=== PATIENT | female | born 1985 | race American Indian/Alaskan Native ===

== ENCOUNTER 2016-05-24 06:04 | Emergency (ER) | payer BC ==
[2016-05-24] MEDS ORDERED: D5NS 0.2% 1,000 ML IV ONE (06:34)
[2016-05-24] MEDS ORDERED: MORPHINE IV ONE (10:43)
[2016-05-24 10:50] LABS: Basophils % (Auto) 0.8 % (0.0-1.8); Eosinophils % (Auto) 0.7 % (0.0-4.3); Hematocrit 31.2 % (30.3-42.9); Hemoglobin 9.4 gm/dl (10.1-14.3); Mean Corpuscular HGB Conc 30 % (30-34); Mean Corpuscular Volume 76 fl (79-97); Platelet Count 294 K/mm3 (140-440); Red Blood Count 4.09 M/mm3 (3.65-5.03); White Blood Count 4.5 K/mm3 (4.5-11.0)
--- NOTE | 2016-05-24 10:52 | Emergency Department Report ---
HPI - General Chief Complaint: Sickle Cell Crisis Time Seen by Provider: 05/24/16 09:36 - HPI HPI: This is a 30-year-old Afro[place] female who presents to the emergency department with a 2 day history of "pain all over" that she believes is due to her sickle cell crisis. Patient has been dealing with intermittent sickle cell pain and was seen by her primary care doctor/balance wheel facer on Friday and required a transfusion at that time. She denies any fever, shortness of breath , nausea, vomiting. Patient is on hydroxyurea and folic acid acid but says she has been out of her oxycodone pain medication. No recent travel or sick contacts at home. She has a port to the left chest wall. She also has a past medical history of asthma. ED Past Medical Hx - Past Medical History Previous Medical History?: Yes Hx Sickle Cell Disease: Yes Hx Asthma: Yes Additional medical history: Blood transfusion - Surgical History Past Surgical History?: Yes Additional Surgical History: port to left chest wall - Social History Smoking Status: Never Smoker Substance Use Type: None - Medications Home Medications: Home Medications Medication Instructions Recorded Confirmed Last Taken Type Folic Acid 0.4 mg PO QDAY 05/24/16 05/24/16 Unknown History Hydroxyurea [Hydrea] 500 mg PO BID 05/24/16 05/24/16 Unknown History Ondansetron [Zofran Odt] 4 mg PO Q6H 05/24/16 05/24/16 Unknown History Oxycodone HCl/Acetaminophen 1 each PO Q6HR PRN #14 tablet 05/24/16 Unknown Rx [Percocet 10/325 mg] ED Review of Systems ROS: Stated complaint: SICKLE CELL PAIN Other details as noted in HPI Comment: All other systems reviewed and negative Constitutional: denies: chills, fever Eyes: denies: eye pain, eye discharge, vision change ENT: denies: ear pain, throat pain Respiratory: denies: cough, shortness of breath, wheezing Cardiovascular: chest pain. denies: palpitations Gastrointestinal: denies: abdominal pain, nausea, diarrhea Genitourinary: denies: urgency, dysuria, discharge Musculoskeletal: back pain, arthralgia, myalgia Skin: denies: rash, lesions Neurological: denies: headache, weakness, paresthesias Physical Exam - Physical Exam Vital Signs: Vital Signs 0205/24/16 05/24/16 06:26 09:35 09:41 Temperature 98.3 F 98.4 F Pulse Rate 99 H Respiratory 16 18 Rate Blood Pressure 116/71 114/77 O2 Sat by Pulse 100 100 Oximetry Physical Exam: GENERAL: The patient is well-developed well-nourished. HEENT: Normocephalic. Atraumatic. Extraocular motions are intact. Patient has moist mucous membranes. Pupils equal reactive to light bilaterally. NECK: Supple. Trachea is midline. CHEST/LUNGS: Clear to auscultation. There is no respiratory distress noted. HEART/CARDIOVASCULAR: Regular. There is no tachycardia. There is no gallop rub or murmur. ABDOMEN: Abdomen is soft, nontender. Patient has normal bowel sounds. There is no abdominal distention. SKIN: There is no rash. There is no edema. There is no diaphoresis. NEURO: The patient is awake, alert, and oriented. The patient is cooperative. The patient has no focal neurologic deficits. The patient has normal speech. Cranial nerves II 12 grossly intact. MUSCULOSKELETAL: There is no tenderness or deformity. There is no limitation range of motion. There is no evidence of acute injury. Muscle strength 5 out of 5 for upper and lower extremities bilaterally. Cap refill less than 2 seconds. ED Course Vital Signs 05/24/16 05/24/16 05/24/16 06:26 09:35 09:41 Temperature 98.3 F 98.4 F Pulse Rate 99 H Respiratory 16 18 Rate Blood Pressure 116/71 114/77 O2 Sat by Pulse 100 100 Oximetry ED Medical Decision Making - Lab Data Result diagrams: 05/24/16 10:00 05/24/16 10:52 - EKG Data -: EKG Interpreted by Me EKG shows normal: sinus rhythm, axis, intervals, QRS complexes, ST-T waves ( isolated T-wave inversion to lead V2) Rate: normal - EKG Data When compared to previous EKG there are: previous EKG unavailable Interpretation: other (isolated T-wave inversions in lead V2, no ST elevation MO ) - Radiology Data Radiology results: image reviewed interpreted by me: Chest x-ray did not show any acute process. Heart is normal shape and size. No effusions. No pneumothorax. No signs of pneumonia seen. - Medical Decision Making 30-year-old female with sickle cell disease presents with what she describes as pain all over. Since that pain did include the chest, the patient was checked with a EKG and chest x-ray. EKG shows a single isolated T-wave inversion in lead V2 but otherwise no ST elevation MO or dysrhythmia. Chest x-ray does not show any acute process including no signs of infiltrates or any pleural effusions. Patient's labs are unremarkable including being afebrile. For these reasons the patient does not appear to be in any acute chest crisis. The rest the patient's labs are mostly unremarkable as well. She does have some anemia but the hemoglobin is 9.2 and does not require transfusion as there does not appear to be symptomatic anemia. Patient's reticulocyte count is 2. She has normal metabolic panel and a negative troponin. Patient does not complain of any significant abdominal pain, vaginal bleeding or dysuria and therefore no urine was obtained but the patient also denies any chance of . She was given IV fluid resuscitation, pain medication and a dose of Zofran. Upon reevaluation she appears much more comfortable and does not appear in any acute distress. She has good follow up with a balance wheel facer. She'll be discharged home to follow-up with them in the next few days but has been encouraged to return to the ER with any worsening of her symptoms, intractable vomiting, intractable fever or any acute distress. - Differential Diagnosis sickle cell pain crisis, chest crisis, fibromyalgia, muscle strain Critical Care Time: No Critical care attestation.: If time is entered above; I have spent that time in minutes in the direct care of this critically ill patient, excluding procedure time. ED Disposition Clinical Impression: Sickle cell pain crisis, Musculoskeletal pain Anemia Qualifiers: Anemia type: unspecified type Qualified Code(s): D64.9 - Anemia, unspecified Disposition: DISCHARGED TO HOME OR SELFCARE Is pt being admited?: No Does the pt Need Aspirin: No Condition: Stable Instructions: Sickle Cell Crisis (ED) Additional Instructions: Please follow-up with your primary care doctor/balance wheel facer in the next few days. Return to the emergency department with any worsening of your symptoms, intractable fever, intractable vomiting, or any acute process. You've been prescribed a medication that is sedating. Therefore this medication cannot be mixed with alcohol, or taken prior to driving, working, or being responsible for children. Prescriptions: Oxycodone HCl/Acetaminophen [Percocet 10/325 mg] 1 each PO Q6HR PRN #14 tablet PRN Reason: Pain Referrals: PRIMARY CARE, [Primary Care Provider] - 3-5 Days Time of Disposition: 13:29
[2016-05-24 10:57] LABS: Mean Corpuscular Hemoglobin 23 pg (28-32); Red Cell Distribution Width 21.4 % (13.2-15.2)
[2016-05-24 10:58] LABS: Reticulocyte % 2.04 % (0.78-2.58)
--- NOTE | 2016-05-24 11:26 | XRay Report ---
Single view chest: History: Chest pain. Findings: Normal cardiomediastinal silhouette. Trachea is midline. No consolidation, pneumothorax or pleural effusion. Stable Port-A-Cath. Impression: No acute cardiopulmonary findings.
[2016-05-24] MEDS ORDERED: TORADOL IV ONE (11:33)
[2016-05-24] MEDS ORDERED: BENADRYL IV ONE (11:33)
[2016-05-24] MEDS ORDERED: ZOFRAN IV ONE (11:33)
[2016-05-24] MEDS ORDERED: DILAUDID IV ONE ×2 (11:33→13:12)
[2016-05-24 12:40] LABS: Blood Urea Nitrogen 4 mg/dL (7-17); Calcium 8.7 mg/dL (8.4-10.2); Carbon Dioxide 23 mmol/L (22-30); Chloride 101.9 mmol/L (98-107); Glucose 107 mg/dL (65-100); Potassium 4.1 mmol/L (3.6-5.0); Sodium 137 mmol/L (137-145)
[2016-05-24 12:42] LABS: Anion Gap 16 mmol/L
[2016-05-24 12:51] VITALS: BP 105/63
[2016-05-24] MEDS ORDERED: FLUSH HEPARIN IV ONE (13:52)
== END 2016-05-24 14:04 | disposition home or self-care (01) ==
LOC: ED 06:04
DX: D57.00 Hb-SS disease with crisis, unspecified (principal); M79.1 Myalgia; J45.909 Unspecified asthma, uncomplicated
CPT/HCPCS: 36415; 71010; 80048; 84484; 85025; 85045; 93005; 93010; 96361; 96374; 96375; 96376; 99284; J1170; J1200; J1642; J1885; J2270; J2405

== ENCOUNTER 2016-05-28 20:59 | Emergency (ER) | payer BC ==
[2016-05-28 21:38] VITALS: BP 130/81
--- NOTE | 2016-05-28 23:56 | Emergency Department Report ---
HPI - General Chief Complaint: Sickle Cell Crisis Time Seen by Provider: 05/28/16 23:43 - HPI HPI: Dharmesh Mayorga The patient is a 30-year-old female presenting with a chief complaint sickle cell pain crisis. The patient states she is visiting from [facility] for approximately 1 week she has had whole-body pain. The patient states the pain had began her chest that then became diffuse and feels consistent with her sickle cell pain crisis. The patient was seen here in the emergency department : Once over symptoms was treated and released. The patient states the pain returned and she called her line appliance assembler daylin (Dr. Walter) and he advised her to come to the ED. The patient states she has an appointment to see her line appliance assembler 05/30/2016 Location: "Whole body" Duration: 1 week Quality: Sickle cell pain Severity: Moderate Modifying factors: [see above] Context: [see above] Mode of transportation: [not driving] ED Past Medical Hx - Past Medical History Previous Medical History?: Yes Hx Sickle Cell Disease: Yes Hx Asthma: Yes Additional medical history: Blood transfusion - Surgical History Past Surgical History?: Yes Additional Surgical History: port to left chest wall - Family History Family history: no significant - Social History Smoking Status: Never Smoker Substance Use Type: None - Medications Home Medications: Home Medications Medication Instructions Recorded Confirmed Last Taken Type Folic Acid 0.4 mg PO QDAY 05/24/16 05/24/16 Unknown History Hydroxyurea [Hydrea] 500 mg PO BID 05/24/16 05/24/16 Unknown History Ondansetron [Zofran Odt] 4 mg PO Q6H 05/24/16 05/24/16 Unknown History Oxycodone HCl/Acetaminophen 1 each PO Q6HR PRN #14 tablet 05/24/16 Unknown Rx [Percocet 10/325 mg] oxyCODONE /ACETAMINOPHEN [Percocet 1 - 2 tab PO Q6HR PRN #14 tablet 05/29/16 Unknown Rx 5/325] ED Review of Systems ROS: Stated complaint: SICKLE CELL PAIN Other details as noted in HPI Comment: All other systems reviewed and negative Constitutional: denies: chills, fever Eyes: denies: eye pain, eye discharge, vision change ENT: denies: ear pain, throat pain Respiratory: denies: cough, shortness of breath, wheezing Cardiovascular: denies: palpitations Endocrine: no symptoms reported Gastrointestinal: denies: abdominal pain, nausea, diarrhea Genitourinary: denies: urgency, dysuria, discharge Musculoskeletal: myalgia Skin: denies: rash, lesions Neurological: denies: headache, weakness, paresthesias Psychiatric: denies: anxiety, depression Hematological/Lymphatic: denies: easy bleeding, easy bruising Physical Exam - Physical Exam Vital Signs: Vital Signs 05/28/16 21:34 Temperature 99.1 F Pulse Rate 96 H Respiratory 16 Rate Blood Pressure 130/81 O2 Sat by Pulse 100 Oximetry Physical Exam: GENERAL: The patient is well-developed well-nourished female lying on stretcher appearing to be in mild discomfort. [] HEENT: Normocephalic. Atraumatic. Extraocular motions are intact. Patient has moist mucous membranes. NECK: Supple. Trachea midline CHEST/LUNGS: Clear to auscultation. There is no respiratory distress noted. HEART/CARDIOVASCULAR: Regular. There is no tachycardia. There is no gallop rub or murmur. ABDOMEN: Abdomen is soft. Patient has normal bowel sounds. There is no abdominal distention. SKIN: There is no rash. There is no edema. There is no diaphoresis. NEURO: The patient is awake, alert, and oriented. The patient is cooperative. The patient has normal speech MUSCULOSKELETAL: There is no evidence of acute injury. ED Course Vital Signs 05/28/16 21:34 Temperature 99.1 F Pulse Rate 96 H Respiratory 16 Rate Blood Pressure 130/81 O2 Sat by Pulse 100 Oximetry - Consultations Consultation #1: 05/29/16 00:52 Patient's [address] assembler [address] William buckley ([phone])- discussed case with on-call line appliance assembler Dr. Moore. She states that the patient was last seen by Dr. Martínez in September 2015 and his records do reflect the patient has sickle cell anemia 05/29/16 01:18 ED Medical Decision Making - Lab Data Result diagrams: 05/28/16 23:47 Laboratory Tests 05/28/16 05/28/16 23:47 23:47 WBC 5.5 RBC 3.49 L Hgb 8.2 L Hct 26.7 L MCV 77 L MCH 24 L MCHC 31 RDW 21.7 H Plt Count 184 Lymph % (Auto) 36.9 H [place] % (Auto) 10.0 H Eos % (Auto) 0.8 Baso % (Auto) 0.7 Lymph # 2.0 [place] # 0.5 Eos # 0.0 Baso # 0.0 Seg Neutrophils % 51.6 Seg Neutrophils # 2.8 Percent Retic 1.12 Sickle Cell Screen Negative - Differential Diagnosis sickle cell pain crisis, malingering Critical care attestation.: If time is entered above; I have spent that time in minutes in the direct care of this critically ill patient, excluding procedure time. ED Disposition Clinical Impression: Anemia, Whole body pain Disposition: DISCHARGED TO HOME OR SELFCARE Is pt being admited?: No Does the pt Need Aspirin: No Condition: Stable Additional Instructions: Return to the emergency department immediately should you develop worsening symptoms, fever, inability to tolerate food or liquid or any other concerns. Prescriptions: oxyCODONE /ACETAMINOPHEN [Percocet 5/325] 1 - 2 tab PO Q6HR PRN #14 tablet PRN Reason: Pain Referrals: PRIMARY CARE, [Primary Care Provider] - 3-[address] William Martínez, your line appliance assembler [Other] - 05/30/16 Time of Disposition: 01:21
[2016-05-28] MEDS: D5NS 0.2% 1,000 ML IV ONE (23:58)
[2016-05-29] MEDS: SUBLIMAZE IV ONE
[2016-05-29] MEDS: ZOFRAN IV ONE
[2016-05-29 00:03] LABS: Hematocrit 26.7 % (30.3-42.9); Hemoglobin 8.2 gm/dl (10.1-14.3); Mean Corpuscular Hemoglobin 24 pg (28-32); Mean Corpuscular Volume 77 fl (79-97); Red Blood Count 3.49 M/mm3 (3.65-5.03); White Blood Count 5.5 K/mm3 (4.5-11.0)
[2016-05-29 00:04] LABS: Basophils % (Auto) 0.7 % (0.0-1.8); Eosinophils % (Auto) 0.8 % (0.0-4.3); Mean Corpuscular HGB Conc 31 % (30-34); Platelet Count 184 K/mm3 (140-440); Red Cell Distribution Width 21.7 % (13.2-15.2); Reticulocyte % 1.12 % (0.78-2.58)
[2016-05-29] MEDS: DILAUDID IV ONE (00:42)
[2016-05-29] MEDS: FLUSH HEPARIN IV ONE (01:52)
== END 2016-05-29 02:06 | disposition home or self-care (01) ==
LOC: ED 20:59
DX: D64.9 Anemia, unspecified (principal); M79.1 Myalgia; J45.909 Unspecified asthma, uncomplicated
CPT/HCPCS: 36415; 85025; 85045; 85660; 96361; 96374; 96375; 99283; J1170; J1642; J2405; J3010

== ENCOUNTER 2016-07-12 10:43 | Emergency (ER) | payer BC ==
[2016-07-12] MEDS ORDERED: D5NS 0.2% 1,000 ML IV SCH (12:00)
--- NOTE | 2016-07-12 12:06 | XRay Report ---
PA and lateral chest: There is an [id number] entering the left subclavian vein with the tip in the upper third of the SVC. The lungs are clear. The mediastinal contour is unremarkable. No vascular congestion. Compared to a prior frontal view on May 24, 2016 the findings are unchanged. Impression: No acute findings.
[2016-07-12] MEDS ORDERED: DILAUDID ONE (13:37)
[2016-07-12] MEDS ORDERED: ZOFRAN ONE (13:37)
[2016-07-12] MEDS ORDERED: ZOFRAN IV ONE (13:39)
[2016-07-12] MEDS ORDERED: DILAUDID IV ONE (13:39)
[2016-07-12 13:57] LABS: Basophils % (Auto) 0.9 % (0.0-1.8); Eosinophils % (Auto) 1.2 % (0.0-4.3); Hematocrit 25.3 % (30.3-42.9); Hemoglobin 8.1 gm/dl (10.1-14.3); Mean Corpuscular HGB Conc 32 % (30-34); Mean Corpuscular Hemoglobin 27 pg (28-32); Mean Corpuscular Volume 85 fl (79-97); Platelet Count 349 K/mm3 (140-440); Red Blood Count 2.98 M/mm3 (3.65-5.03); Red Cell Distribution Width 17.6 % (13.2-15.2); Reticulocyte % 1.87 % (0.78-2.58); White Blood Count 7.8 K/mm3 (4.5-11.0)
[2016-07-12 14:15] LABS: Anion Gap 14 mmol/L; Blood Urea Nitrogen 3 mg/dL (7-17); Calcium 8.7 mg/dL (8.4-10.2); Carbon Dioxide 24 mmol/L (22-30); Chloride 103.7 mmol/L (98-107); Glucose 81 mg/dL (65-100); Potassium 4.3 mmol/L (3.6-5.0); Sodium 137 mmol/L (137-145)
--- NOTE | 2016-07-12 15:25 | Emergency Department Report ---
HPI - General Chief Complaint: Sickle Cell Crisis Time Seen by Provider: 07/12/16 13:37 - HPI HPI: Room 10 Patient is a 30-year-old female presenting with a chief complaint of sickle cell pain crisis. Patient states her pain began 2 days ago with substernal chest pain of sharp in nature and then began to spread to her legs and back. Patient states it feels consistent with previous pain crises. Patient does admit to shortness of breath but denies cough. Patient admits to a fever 101.2 F 3 days ago. Location: [see above] Duration: 2 days Quality: Pain crisis consistent with previous sickle cell pain crisis Severity: Moderate Modifying factors: [see above] Context: [see above] Mode of transportation: Unknown ED Past Medical Hx - Past Medical History Previous Medical History?: Yes Hx Hypertension: Yes Hx Sickle Cell Disease: Yes (hemoglobinopathy labs sent05/28/2016 revealed normal hemoglobin) Hx Asthma: Yes Additional medical history: Blood transfusion - Surgical History Past Surgical History?: Yes Additional Surgical History: port to left chest wall - Family History Family history: no significant - Social History Smoking Status: Never Smoker Substance Use Type: Prescribed - Medications Home Medications: Home Medications Medication Instructions Recorded Confirmed Last Taken Type Folic Acid 0.4 mg PO QDAY 05/24/16 05/24/16 Unknown History Hydroxyurea [Hydrea] 500 mg PO BID 05/24/16 05/24/16 Unknown History Ondansetron [Zofran Odt] 4 mg PO Q6H 05/24/16 05/24/16 Unknown History Oxycodone HCl/Acetaminophen 1 each PO Q6HR PRN #14 tablet 05/24/16 Unknown Rx [Percocet 10/325 mg] oxyCODONE /ACETAMINOPHEN [Percocet 1 - 2 tab PO Q6HR PRN #14 tablet 05/29/16 Unknown Rx 5/325] Ibuprofen [Motrin 800 MG tab] 800 mg PO Q8HR PRN #30 tablet 07/12/16 Unknown Rx ED Review of Systems ROS: Stated complaint: SICKLE CELL CRISIS Other details as noted in HPI Comment: All other systems reviewed and negative Constitutional: fever Eyes: denies: eye pain, eye discharge, vision change ENT: denies: ear pain, throat pain Respiratory: shortness of breath. denies: cough Cardiovascular: chest pain. denies: palpitations Endocrine: no symptoms reported Gastrointestinal: denies: abdominal pain, nausea, diarrhea Genitourinary: denies: urgency, dysuria, discharge Musculoskeletal: denies: back pain, joint swelling, arthralgia Skin: denies: rash, lesions Neurological: denies: headache, weakness, paresthesias Psychiatric: denies: anxiety, depression Hematological/Lymphatic: other (sickle cell pain crisis) Physical Exam - Physical Exam Vital Signs: Vital Signs 07/12/16 07/12/16 11:37 13:50 Temperature 98.5 F 98.9 F Pulse Rate 97 H 80 Respiratory 18 18 Rate Blood Pressure 122/69 Blood Pressure 116/78 [Left] O2 Sat by Pulse 100 99 Oximetry Physical Exam: GENERAL: The patient is well-developed well-nourished female lying on stretcher not appearing to be in acute distress. [] HEENT: Normocephalic. Atraumatic. Extraocular motions are intact. Patient has moist mucous membranes. NECK: Supple. Trachea midline CHEST/LUNGS: Clear to auscultation. There is no respiratory distress noted. HEART/CARDIOVASCULAR: Regular. There is no tachycardia. There is no gallop rub or murmur. ABDOMEN: Abdomen is soft, nontender. Patient has normal bowel sounds. There is no abdominal distention. SKIN: There is no rash. There is no edema. There is no diaphoresis. NEURO: The patient is awake, alert, and oriented. The patient is cooperative. The patient has normal speech MUSCULOSKELETAL: There is no evidence of acute injury. ED Course Vital Signs 07/12/16 07/12/16 11:37 13:50 Temperature 98.5 F 98.9 F Pulse Rate 97 H 80 Respiratory 18 18 Rate Blood Pressure 122/69 Blood Pressure 116/78 [Left] O2 Sat by Pulse 100 99 Oximetry ED Medical Decision Making - Lab Data Result diagrams: 07/12/16 13:25 07/12/16 13:25 Laboratory Tests 07/12/16 07/12/16 13:25 13:25 WBC 7.8 RBC 2.98 L Hgb 8.1 L Hct 25.3 L MCV 85 MCH 27 L MCHC 32 RDW 17.6 H Plt Count 349 Lymph % (Auto) 24.9 [place] % (Auto) 7.5 H Eos % (Auto) 1.2 Baso % (Auto) 0.9 Lymph # 2.0 [place] # 0.6 Eos # 0.1 Baso # 0.1 Seg Neutrophils % 65.5 Seg Neutrophils # 5.1 Percent Retic 1.87 Sodium 137 Potassium 4.3 Chloride 103.7 Carbon Dioxide 24 Anion Gap 14 BUN 3 L Creatinine 0.5 L Estimated GFR > 60 BUN/Creatinine Ratio 6.00 Glucose 81 Calcium 8.7 - EKG Data -: EKG Interpreted by Me EKG shows normal: sinus rhythm Rate: normal - EKG Data When compared to previous EKG there are: previous EKG unavailable - Radiology Data Radiology results: report reviewed (VQ scan), image reviewed (chest x-ray, VQ scan) interpreted by me: Chest x-ray-no focal infiltrates, no pneumothorax VQ scan (read by radiologist)-normal examination Critical care attestation.: If time is entered above; I have spent that time in minutes in the direct care of this critically ill patient, excluding procedure time. ED Disposition Clinical Impression: Atypical chest pain Disposition: DISCHARGED TO HOME OR SELFCARE Is pt being admited?: No Does the pt Need Aspirin: No Condition: Stable Instructions: Chest Pain (ED) Additional Instructions: Return to the emergency department immediately should you develop worsening symptoms, fever, inability to tolerate food or liquid or any other concerns. Prescriptions: Ibuprofen [Motrin 800 MG tab] 800 mg PO Q8HR PRN #30 tablet PRN Reason: Pain Referrals: PRIMARY CARE, [Primary Care Provider] - 3-5 Days NEELA GUZMÁN DO [Staff Physician] - 3-5 Days Time of Disposition: 16:22
--- NOTE | 2016-07-12 16:19 | Nuclear Medicine Report ---
LUNG SCAN, VENTILATION AND PERFUSION: Inhalation of Xenon gas demonstrates a normal distribution of the activity throughout both lungs. The wash out phases show no focal retention of activity. After injection of Technetium 99m macroaggregated albumin gamma camera imaging of the lungs in multiple projections demonstrates normal pulmonary contours with a homogeneous distribution of activity. No focal areas of perfusion deficiency are identified. IMPRESSION: Normal study.
[2016-07-12 17:08] VITALS: BP 117/78
== END 2016-07-12 17:13 | disposition home or self-care (01) ==
LOC: ED 10:43
DX: R07.89 Other chest pain (principal); I10 Essential (primary) hypertension; J45.909 Unspecified asthma, uncomplicated
CPT/HCPCS: 36415; 71020; 78582; 80048; 85025; 85045; 87040; 93005; 93010; 96361; 96374; 96375; 99284; A9540; A9558; J1170; J2405

== ENCOUNTER 2016-07-30 00:28 | Inpatient (IN) | payer BC ==
[2016-07-30] MEDS ORDERED: D5NS 0.2% 1,000 ML IV SCH (03:00)
[2016-07-30 05:45] LABS: Basophils % (Auto) 0.6 % (0.0-1.8); Eosinophils % (Auto) 0.9 % (0.0-4.3); Hematocrit 23.3 % (30.3-42.9); Hemoglobin 7.5 gm/dl (10.1-14.3); Mean Corpuscular HGB Conc 32 % (30-34); Mean Corpuscular Hemoglobin 27 pg (28-32); Mean Corpuscular Volume 84 fl (79-97); Platelet Count 229 K/mm3 (140-440); Red Blood Count 2.77 M/mm3 (3.65-5.03); Reticulocyte % 2.78 % (0.78-2.58); White Blood Count 6.2 K/mm3 (4.5-11.0)
[2016-07-30 05:50] LABS: Alanine Aminotransferase 11 units/L (7-56); Albumin 3.7 g/dL (3.9-5); Albumin/Globulin Ratio 1.2 %; Alkaline Phosphatase 62 units/L (35-129); Anion Gap 17 mmol/L; Bilirubin,Total < 0.2 mg/dL (0.1-1.2); Blood Urea Nitrogen 5 mg/dL (7-17); Calcium 8.7 mg/dL (8.4-10.2); Carbon Dioxide 23 mmol/L (22-30); Glucose 92 mg/dL (65-100); Lipase 46 units/L (13-60); Sodium 141 mmol/L (137-145); Total Protein 6.7 g/dL (6.3-8.2)
[2016-07-30] MEDS ORDERED: ZOFRAN IV ONE (07:22)
[2016-07-30] MEDS ORDERED: DILAUDID IV ONE (07:23)
[2016-07-30] MEDS ORDERED: BENADRYL IV ONE (07:23)
--- NOTE | 2016-07-30 07:28 | Emergency Department Report ---
ED General Adult HPI - General Chief complaint: Sickle Cell Crisis Stated complaint: SICKLE CELL Time Seen by Provider: 07/30/16 06:20 Source: patient, old records reviewed Mode of arrival: Ambulatory Limitations: No Limitations - History of Present Illness Initial comments: 30-year-old female with a past medical history of sickle cell SS presents to the hospital with complaints of pain secondary to crisis. Patient was admitted to [facility] but checked herself out prematurely on the because she wanted to go home. During her admission she she states her hemoglobin was 6.3 and she received 2 units of blood. She never really felt better and continued to have pain since checking herself out of the hospital. Patient also states she walks several miles outside which exacerbated her symptoms. She now complains of generalized weakness and fatigue and pain to her back and extremities. Pain is rated 10/10 in intensity, constant, stabbing, no aggravating or alleviating factors. She states she typically receives a blood transfusion when her hemoglobin is less than 8. 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 Severity scale (0 -10): 10 - Related Data Home Medications Medication Instructions Recorded Confirmed Last Taken Folic Acid 0.4 mg PO QDAY 05/24/16 05/24/16 Unknown Hydroxyurea [Hydrea] 500 mg PO BID 05/24/16 05/24/16 Unknown Ondansetron [Zofran Odt] 4 mg PO Q6H 05/24/16 05/24/16 Unknown Previous Rx's Medication Instructions Recorded Last Taken Type Oxycodone HCl/Acetaminophen 1 each PO Q6HR PRN #14 tablet 05/24/16 Unknown Rx [Percocet 10/325 mg] oxyCODONE /ACETAMINOPHEN [Percocet 1 - 2 tab PO Q6HR PRN #14 tablet 05/29/16 Unknown Rx 5/325] Ibuprofen [Motrin 800 MG tab] 800 mg PO Q8HR PRN #30 tablet 07/12/16 Unknown Rx Allergies Allergy/AdvReac Type Severity Reaction Status Date / Time iodine Allergy Shortness Uncoded 05/24/16 06:34 of Breath ED Review of Systems ROS: Stated complaint: SICKLE CELL Other details as noted in HPI Comment: All other systems reviewed and negative Other: Constitutional: No fevers chills Eyes: No eye pain visual changes ENT: No ear pain or throat pain Neck: Denies pain Respiratory: Denies cough wheezing Cardiovascular: Denies chest pain GI: mild upper abd pain, nausea, intermittent vomiting : Denies dysuria, urinary frequency, or urgency Musculoskeletal: as per hpi Skin: Denies rash, lesions, erythema Neurologic: Denies headache, numbness, weakness Psychiatric: Denies suicidal ideation, hallucinations ED Past Medical Hx - Past Medical History Hx Hypertension: Yes Hx Sickle Cell Disease: Yes (hemoglobinopathy labs sent05/28/2016 revealed normal hemoglobin) Hx Asthma: Yes Additional medical history: Blood transfusion(multiply transfusions) - Surgical History Past Surgical History?: Yes Additional Surgical History: port to left chest wall - Social History Smoking Status: Never Smoker Substance Use Type: None - Medications Home Medications: Home Medications Medication Instructions Recorded Confirmed Last Taken Type Folic Acid 0.4 mg PO QDAY 05/24/16 05/24/16 Unknown History Hydroxyurea [Hydrea] 500 mg PO BID 05/24/16 05/24/16 Unknown History Ondansetron [Zofran Odt] 4 mg PO Q6H 05/24/16 05/24/16 Unknown History Oxycodone HCl/Acetaminophen 1 each PO Q6HR PRN #14 tablet 05/24/16 Unknown Rx [Percocet 10/325 mg] oxyCODONE /ACETAMINOPHEN [Percocet 1 - 2 tab PO Q6HR PRN #14 tablet 05/29/16 Unknown Rx 5/325] Ibuprofen [Motrin 800 MG tab] 800 mg PO Q8HR PRN #30 tablet 07/12/16 Unknown Rx ED Physical Exam - General Limitations: No Limitations - Other Other exam information: General: No limitations, patient is alert in no acute distress Head exam: Atraumatic, normocephalic Eyes exam: Normal appearance ENT: Moist mucous membrane, normal oropharynx Neck exam: Normal inspection, full range of motion Respiratory exam: Clear to auscultation bilateral, no wheezes, rales, crackles Cardiovascular: Normal rate and rhythm Abdomen: Soft, nondistended, left upper quadrant tenderness, with normal bowel sounds, no rebound, or guarding Extremity: Full range of motion normal inspection no deformity Back: Normal Inspection, full range of motion, no tenderness Neurologic: Alert, oriented x3, cranial nerves intact, no motor or sensory deficit Psychiatric: normal affect, normal mood Skin: Warm, dry, intact ED Course Vital Signs 07/30/16 07/30/16 07/30/16 01:55 05:30 06:00 Temperature 98.7 F Pulse Rate 90 80 80 Respiratory 18 18 16 Rate Blood Pressure 114/77 114/80 115/77 [Right] O2 Sat by Pulse 100 100 100 Oximetry - Reevaluation(s) Reevaluation #1: 07/30/16 07:29 Dilaudid, Zofran, Benadryl and IV fluids ordered ED Medical Decision Making - Lab Data Result diagrams: 07/30/16 02:14 07/30/16 02:14 Lab Results 07/30/16 07/30/16 Range/Units 02:14 02:14 WBC 6.2 (4.5-11.0) K/mm3 RBC 2.77 L (3.65-5.03) M/mm3 Hgb 7.5 L (10.1-14.3) gm/dl Hct 23.3 L (30.3-42.9) % MCV 84 (79-97) fl MCH 27 L (28-32) pg MCHC 32 (30-34) % RDW 20.0 H (13.2-15.2) % Plt Count 229 (140-440) K/mm3 Lymph % (Auto) 39.3 H (13.4-35.0) % [place] % (Auto) 10.0 H (0.0-7.3) % Eos % (Auto) 0.9 (0.0-4.3) % Baso % (Auto) 0.6 (0.0-1.8) % Lymph # 2.4 (1.2-5.4) K/mm3 [place] # 0.6 (0.0-0.8) K/mm3 Eos # 0.1 (0.0-0.4) K/mm3 Baso # 0.0 (0.0-0.1) K/mm3 Seg Neutrophils % 49.2 (40.0-70.0) % Seg Neutrophils # 3.1 (1.8-7.7) K/mm3 Percent Retic 2.78 H (0.78-2.58) % Sodium 141 (137-145) mmol/L Potassium 4.0 (3.6-5.0) mmol/L Chloride 105.0 (98-107) mmol/L Carbon Dioxide 23 (22-30) mmol/L Anion Gap 17 mmol/L BUN 5 L (7-17) mg/dL Creatinine 0.5 L (0.7-1.2) mg/dL Estimated GFR > 60 ml/min BUN/Creatinine Ratio 10.00 % Glucose 92 (65-100) mg/dL Calcium 8.7 (8.4-10.2) mg/dL Total Bilirubin < 0.2 (0.1-1.2) mg/dL AST 13 (5-40) units/L ALT 11 (7-56) units/L Alkaline Phosphatase 62 (35-129) units/L Total Protein 6.7 (6.3-8.2) g/dL Albumin 3.7 L (3.9-5) g/dL Albumin/Globulin Ratio 1.2 % Lipase 46 (13-60) units/L - Medical Decision Making Patient's hemoglobin has dropped back down to 7.5 after receiving 2 units of blood as she continues to have pain secondary to crisis. She was admitted to the hospital for possible blood transfusion and management of sickle cell pain. Urine collection pending - Differential Diagnosis anemia, sickle cell crisis, infection Critical Care Time: No Critical care attestation.: If time is entered above; I have spent that time in minutes in the direct care of this critically ill patient, excluding procedure time. ED Disposition Clinical Impression: Sickle-cell with crisis, Anemia Disposition: OP ADMITTED IP TO THIS HOSP Is pt being admited?: Yes Condition: Stable Time of Disposition: 07:31 (Dr Kerr/hosp)
--- NOTE | 2016-07-30 07:49 | Admit Criteria Form ---
Admission Criteria Documentation: SICKLE CELL DISEASE Clinical Indications for Admission to Inpatient Care (Place 'X' for any and all applicable criteria): Admission is indicated for ANY ONE of the following(1)(2)(3)(4)(5): [X]I. Inpatient admission required rather than observation care because of ANY ONE of the following: [ ]a) Altered mental status [ ]b) High fever or infection requiring inpatient admission as indicated by ANY ONE of the following: [ ]A. Appropriate outpatient observation care antimicrobial treatment unavailable, not effective, or not appropriate for infection [ ]B. Documented bacteremia [ ]C. Temp >104.9F (40.5C) (oral) [ ]D. Temp >103.1F (oral) or <96.8F(rectal) that does not respond to all emergency treatment measures [ ]c) Supplemental O2 or respiratory therapy for over 24 h that are performable only in acute inpatient setting [X]d) Continuous parenteral narcoticsother major pain intervention for >24 h performable only in acute inpatient setting. [ ]e) Exchange transfusion [X]f) Other condition, treatment or monitoring requiring inpatient admission [ ]II. Acute chest syndrome indicated by ALL of the following (10): [ ]a) New alveolar infiltrate involving at least one lung segment [ ]b) Associated pulmonary symptoms or findings as indicated by ANY ONE of the following: [ ]i) Chest pain [ ]ii) Hypoxemia [ ]iii) Tachypnea/dyspnea [ ]iv) Wheezing [ ]v) Cough [ ]vi) Sputum production [ ]III. Significant hypoxemia or acidosis (more severe than baseline) [ ]IV. Emergent surgery needed (eg, acute cholecystitis) [ ]V. -related complication(11) [ ]. Splenic or hepatic sequestration(12) [ ]VII. Aplastic crisis [ ]VIII. Priapism or other vascular complication(13) [ ]IX. Traumatic hyphema [A](14) [ ]X. Underlying condition requiring hospitalization (eg, osteomyelitis) [ ]XI. Signs or symptoms of central nervous system injury indicated by ANY ONE of the following: [ ]a) Stroke(9) [ ]b) Seizure [ ]c) Other significant central nervous system symptom or event [ ]XII. Acute renal failure Extended stay beyond goal length of stay may be needed for: [ ]a) Inadequate pain control [ ]b) Acute chest syndrome [ ]c) Sequestration or aplastic crisis (12) [ ]d) Pneumonia and asthma exacerbation [ ]e) Neurologic or vascular complications (25) [ ]f) Infection (eg, osteomyelitis) that requires ongoing treatment) The original [facility] content created by [facility] has been revised. The portions of the content which have been revised are identified through the use of italic text or in bold, and [facility] has neither reviewed nor approved the modified material. All other unmodified content is copyright [facility]. Please see references footnoted in the original [facility] edition 2016 Admission Criteria Met: Yes
[2016-07-30 09:04] LABS: Bacteria,Urine 1+ /HPF (Negative); Bilirubin,Urine NEG (Negative); Blood,Urine LG (Negative); Ketones,Urine NEG (Negative); Leukocyte Esterase,Urine TR (Negative); Mucus,Urine FEW /HPF; Nitrite,Urine NEG (Negative); Protein,Urine <15 mg/dL mg/dL (Negative); Urobilinogen,Urine < 2.0 mg/dL (<2.0)
--- NOTE | 2016-07-30 09:04 | History and Physical Report ---
History of Present Illness Date of examination: 07/30/16 Date of admission: 07/30/16 07:32 Chief complaint: SS pain crisis History of present illness: 30-year-old female with a past medical history of sickle cell SS presents to the hospital with complaints of sickle cell vaso-occlusive crisis with pain of the back and lower extremities. Patient was admitted to [facility] but checked herself out prematurely on the 6th because she wanted to go home. During her admission, she states her hemoglobin was 6.3 and she received 2 units of blood. She never really felt better and continued to have pain since checking herself out of the hospital. Patient also states she walks several miles outside which exacerbated her symptoms. Patient also complains of generalized weakness. Pain is rated 10/10 in intensity, constant, stabbing, no aggravating or alleviating factors. She states she typically receives a blood transfusion when her hemoglobin is less than 8. 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 Patient denies any nausea, vomiting, diarrhea or abdominal pain. No chest pain or shortness of breath. No headache or visual disturbances. Past History Past Medical History: other (asthma, lle dvt, sickle cell crisis) Past Surgical History: No surgical history Social history: no significant social history Family history: no significant family history Medications and Allergies Allergies Allergy/AdvReac Type Severity Reaction Status Date / Time iodine Allergy Shortness Uncoded 05/24/16 06:34 of Breath Home Medications Medication Instructions Recorded Confirmed Last Taken Type Hydroxyurea [Hydrea] 500 mg PO BID 05/24/16 07/30/16 Unknown History Ondansetron [Zofran Odt] 4 mg PO Q6H 05/24/16 07/30/16 Unknown History ALBUTEROL Inhaler [Proair] 2 puff IH QID PRN 07/30/16 07/30/16 Unknown History Folic Acid [Folvite] 1 mg PO QDAY 07/30/16 07/30/16 Unknown History HYDROcodone/APAP 10-325 [[place] 1 each PO Q4-6H 07/30/16 07/30/16 Unknown History 10/325] Active Meds: Active Medications Dextrose/Sodium Chloride (D5ns 0.2%) 1,000 mls @ 250 mls/hr IV DIRECT BLAINE Last Admin: 07/30/16 06:07 Dose: 250 mls/hr Review of Systems All systems: negative Exam - Constitutional Vitals: Temp Pulse Resp BP Pulse Ox 98.1 F 104 H 16 126/72 99 07/30/16 08:07 07/30/16 08:07 07/30/16 08:07 07/30/16 08:07 07/30/16 08:07 General appearance: Present: no acute distress, well-nourished - EENT Eyes: Present: PERRL ENT: hearing intact, clear oral mucosa - Neck Neck: Present: supple, normal ROM - Respiratory Respiratory effort: normal Respiratory: bilateral: CTA - Cardiovascular Heart Sounds: Present: S1 & S2. Absent: rub, click - Extremities Extremities: pulses symmetrical, No edema Peripheral Pulses: within normal limits - Abdominal General gastrointestinal: Present: soft, non-tender, non-distended, normal bowel sounds Female genitourinary: Present: normal - Integumentary Integumentary: Present: clear, warm, dry - Musculoskeletal Musculoskeletal: gait normal, strength equal bilaterally - Psychiatric Psychiatric: appropriate mood/affect, intact judgment & insight - Neurologic Neurologic: CNII-XII intact, moves all extremities Results - Labs CBC & Chem 7: 07/30/16 02:14 07/30/16 02:14 Labs: Laboratory Last Values WBC 6.2 K/mm3 (4.5-11.0) 07/30/16 02:14 RBC 2.77 M/mm3 (3.65-5.03) L 07/30/16 02:14 Hgb 7.5 gm/dl (10.1-14.3) L 07/30/16 02:14 Hct 23.3 % (30.3-42.9) L 07/30/16 02:14 MCV 84 fl (79-97) 07/30/16 02:14 MCH 27 pg (28-32) L 07/30/16 02:14 MCHC 32 % (30-34) 07/30/16 02:14 RDW 20.0 % (13.2-15.2) H 07/30/16 02:14 Plt Count 229 K/mm3 (140-440) 07/30/16 02:14 Lymph % (Auto) 39.3 % (13.4-35.0) H 07/30/16 02:14 [place] % (Auto) 10.0 % (0.0-7.3) H 07/30/16 02:14 Eos % (Auto) 0.9 % (0.0-4.3) 07/30/16 02:14 Baso % (Auto) 0.6 % (0.0-1.8) 07/30/16 02:14 Lymph # 2.4 K/mm3 (1.2-5.4) 07/30/16 02:14 [place] # 0.6 K/mm3 (0.0-0.8) 07/30/16 02:14 Eos # 0.1 K/mm3 (0.0-0.4) 07/30/16 02:14 Baso # 0.0 K/mm3 (0.0-0.1) 07/30/16 02:14 Seg Neutrophils % 49.2 % (40.0-70.0) 07/30/16 02:14 Seg Neutrophils # 3.1 K/mm3 (1.8-7.7) 07/30/16 02:14 Percent Retic 2.78 % (0.78-2.58) H 07/30/16 02:14 Sodium 141 mmol/L (137-145) 07/30/16 02:14 Potassium 4.0 mmol/L (3.6-5.0) 07/30/16 02:14 Chloride 105.0 mmol/L (98-107) 07/30/16 02:14 Carbon Dioxide 23 mmol/L (22-30) 07/30/16 02:14 Anion Gap 17 mmol/L 07/30/16 02:14 BUN 5 mg/dL (7-17) L 07/30/16 02:14 Creatinine 0.5 mg/dL (0.7-1.2) L 07/30/16 02:14 Estimated GFR > 60 ml/min 07/30/16 02:14 BUN/Creatinine Ratio 10.00 % 07/30/16 02:14 Glucose 92 mg/dL (65-100) 07/30/16 02:14 Calcium 8.7 mg/dL (8.4-10.2) 07/30/16 02:14 Total Bilirubin < 0.2 mg/dL (0.1-1.2) 07/30/16 02:14 AST 13 units/L (5-40) 07/30/16 02:14 ALT 11 units/L (7-56) 07/30/16 02:14 Alkaline Phosphatase 62 units/L (35-129) 07/30/16 02:14 Total Protein 6.7 g/dL (6.3-8.2) 07/30/16 02:14 Albumin 3.7 g/dL (3.9-5) L 07/30/16 02:14 Albumin/Globulin Ratio 1.2 % 07/30/16 02:14 Lipase 46 units/L (13-60) 07/30/16 02:14 Assessment and Plan Assessment and plan: 1. Sickle cell vaso-occlusive crisis. Patient will place on the sickle cell pathway and treated with IV fluid hydration, pain control and supportive care. 2. Asthma. Stable. 3. History of left lower extremity DVT. Treated. Patient on no anticoagulation.
[2016-07-30] MEDS ORDERED: MILK OF MAGNESIA PO PRN (09:05)
[2016-07-30] MEDS ORDERED: DULCOLAX PR PRN (09:05)
[2016-07-30] MEDS ORDERED: D5/0.45NS 1,000 ML IV SCH (10:00)
[2016-07-30] MEDS: FOLVITE PO SCH (10:13)
[2016-07-30] MEDS: MORPHINE IV PRN ×4 (10:13→23:01)
[2016-07-30] MEDS: THERAGRAN Tab PO SCH (10:13)
[2016-07-30] MEDS: LOVENOX SUB-Q SCH (10:13)
[2016-07-30] MEDS: ZOFRAN IV PRN ×2 (15:03→23:01)
[2016-07-30] MEDS: NACL 0.9% 1000 ML 1,000 ML IV SCH (17:27)
[2016-07-30] MEDS: SENOKOT PO SCH (23:01)
[2016-07-31] MEDS: MORPHINE IV PRN ×2 (03:15→07:17)
[2016-07-31] MEDS: ZOFRAN IV PRN ×2 (07:17→15:11)
[2016-07-31 07:19] LABS: Basophils % (Auto) 0.9 % (0.0-1.8); Eosinophils % (Auto) 1.8 % (0.0-4.3); Hematocrit 22.6 % (30.3-42.9); Hemoglobin 7.3 gm/dl (10.1-14.3); Mean Corpuscular HGB Conc 32 % (30-34); Mean Corpuscular Hemoglobin 27 pg (28-32); Mean Corpuscular Volume 84 fl (79-97); Platelet Count 189 K/mm3 (140-440); Red Blood Count 2.69 M/mm3 (3.65-5.03); Red Cell Distribution Width 19.5 % (13.2-15.2); Reticulocyte % 2.46 % (0.78-2.58); White Blood Count 4.9 K/mm3 (4.5-11.0)
[2016-07-31] MEDS: NACL 0.9% 1000 ML 1,000 ML IV SCH (07:19)
[2016-07-31 07:43] LABS: Anion Gap 14 mmol/L; BUN/Creatinine Ratio 6.66; Blood Urea Nitrogen 4 mg/dL (7-17); Calcium 8.6 mg/dL (8.4-10.2); Carbon Dioxide 24 mmol/L (22-30); Chloride 106.2 mmol/L (98-107); Glucose 81 mg/dL (65-100); Lactate Dehydrogenase 148 units/L (91-180); Sodium 140 mmol/L (137-145)
[2016-07-31] MEDS: THERAGRAN Tab PO SCH (09:15)
[2016-07-31] MEDS: FOLVITE PO SCH (09:15)
[2016-07-31] MEDS: LOVENOX SUB-Q SCH (09:16)
[2016-07-31] MEDS: NORCO 10/325 PO PRN (11:25)
--- NOTE | 2016-07-31 13:31 | Progress Note ---
Assessment and Plan Assessment and plan: 1. Sickle cell vaso-occlusive crisis. Continue IV hydration, pain control and supportive care UA is negative, obtain x-ray to rule out infectious etiology 2. Asthma. Stable. 3. History of left lower extremity DVT. Patient has completed treatment with anticoagulants, and is no longer on them. We'll give prophylactic Lovenox for prevention History Interval history: She continues to complain of pains all over her body, denies fever, denies dysuria, denies shortness of breath, denies cough Hospitalist Physical - Physical exam Narrative exam: General: Mild distress due to pain HEENT: MMM, EOMI cardiac: S1-S2 heard lungs: clear to auscultation, abdomen: soft, nontender, nondistended bowel sounds positive extremities: no edema clubbing or cyanosis Skin: no rash or lesion Neuro: no focal deficit Psych: appropriate behavior and mood, cognition intact - Constitutional Vitals: Temp Pulse Resp BP Pulse Ox 98.6 F 84 16 124/68 100 07/31/16 07:57 07/31/16 07:57 07/31/16 07:57 07/31/16 07:57 07/31/16 07:57 General appearance: Present: no acute distress, well-nourished Results - Labs CBC & Chem 7: 08/02/16 09:00 07/31/16 Unknown Labs: Laboratory Last Values WBC 4.9 K/mm3 (4.5-11.0) 07/31/16 Unknown RBC 2.69 M/mm3 (3.65-5.03) L 07/31/16 Unknown Hgb 7.3 gm/dl (10.1-14.3) L 07/31/16 Unknown Hct 22.6 % (30.3-42.9) L 07/31/16 Unknown MCV 84 fl (79-97) 07/31/16 Unknown MCH 27 pg (28-32) L 07/31/16 Unknown MCHC 32 % (30-34) 07/31/16 Unknown RDW 19.5 % (13.2-15.2) H 07/31/16 Unknown Plt Count 189 K/mm3 (140-440) 07/31/16 Unknown Lymph % (Auto) 51.1 % (13.4-35.0) H 07/31/16 Unknown [place] % (Auto) 9.0 % (0.0-7.3) H 07/31/16 Unknown Eos % (Auto) 1.8 % (0.0-4.3) 07/31/16 Unknown Baso % (Auto) 0.9 % (0.0-1.8) 07/31/16 Unknown Lymph # 2.5 K/mm3 (1.2-5.4) 07/31/16 Unknown [place] # 0.4 K/mm3 (0.0-0.8) 07/31/16 Unknown Eos # 0.1 K/mm3 (0.0-0.4) 07/31/16 Unknown Baso # 0.0 K/mm3 (0.0-0.1) 07/31/16 Unknown Seg Neutrophils % 37.2 % (40.0-70.0) L 07/31/16 Unknown Seg Neutrophils # 1.8 K/mm3 (1.8-7.7) 07/31/16 Unknown Percent Retic 2.46 % (0.78-2.58) 07/31/16 Unknown Sodium 140 mmol/L (137-145) 07/31/16 Unknown Potassium 4.0 mmol/L (3.6-5.0) 07/31/16 Unknown Chloride 106.2 mmol/L (98-107) 07/31/16 Unknown Carbon Dioxide 24 mmol/L (22-30) 07/31/16 Unknown Anion Gap 14 mmol/L 07/31/16 Unknown BUN 4 mg/dL (7-17) L 07/31/16 Unknown Creatinine 0.6 mg/dL (0.7-1.2) L 07/31/16 Unknown Estimated GFR > 60 ml/min 07/31/16 Unknown BUN/Creatinine Ratio 6.66 % 07/31/16 Unknown Glucose 81 mg/dL (65-100) 07/31/16 Unknown Calcium 8.6 mg/dL (8.4-10.2) 07/31/16 Unknown Total Bilirubin < 0.2 mg/dL (0.1-1.2) 07/30/16 02:14 AST 13 units/L (5-40) 07/30/16 02:14 ALT 11 units/L (7-56) 07/30/16 02:14 Alkaline Phosphatase 62 units/L (35-129) 07/30/16 02:14 Lactate Dehydrogenase 148 units/L (91-180) 07/31/16 Unknown Total Protein 6.7 g/dL (6.3-8.2) 07/30/16 02:14 Albumin 3.7 g/dL (3.9-5) L 07/30/16 02:14 Albumin/Globulin Ratio 1.2 % 07/30/16 02:14 Lipase 46 units/L (13-60) 07/30/16 02:14 Urine Color Straw (Yellow) 07/30/16 08:40 Urine Turbidity Clear (Clear) 07/30/16 08:40 Urine pH 8.0 (5.0-7.0) H 07/30/16 08:40 Ur Specific [place] 1.004 (1.003-1.030) 07/30/16 08:40 Urine Protein <15 mg/dl mg/dL (Negative) 07/30/16 08:40 Urine Glucose (UA) Neg mg/dL (Negative) 07/30/16 08:40 Urine Ketones Neg mg/dL (Negative) 07/30/16 08:40 Urine Blood Lg (Negative) 07/30/16 08:40 Urine Nitrite Neg (Negative) 07/30/16 08:40 Urine Bilirubin Neg (Negative) 07/30/16 08:40 Urine Urobilinogen < 2.0 mg/dL (<2.0) 07/30/16 08:40 Ur Leukocyte Esterase Tr (Negative) 07/30/16 08:40 Urine WBC (Auto) 1.0 /HPF (0.0-6.0) 07/30/16 08:40 Urine RBC (Auto) 4.0 /HPF (0.0-6.0) 07/30/16 08:40 U Epithel Cells (Auto) 7.0 /HPF (0-13.0) 07/30/16 08:40 Urine Bacteria (Auto) 1+ /HPF (Negative) 07/30/16 08:40 Urine Mucus Few /HPF 07/30/16 08:40 Urine HCG, Qual Negative (Negative) 07/30/16 08:40 Blood Type O POSITIVE 07/31/16 00:50 Antibody Screen Negative 07/31/16 00:50
--- NOTE | 2016-07-31 14:47 | XRay Report ---
Chest 2 views. Findings: The heart and lungs are within normal limits. A left [id number] catheter terminates in the upper SVC. Impression: No acute findings.
[2016-07-31] MEDS: BENADRYL PO PRN (15:11)
[2016-07-31] MEDS: DILAUDID IV PRN ×3 (15:11→23:33)
[2016-07-31] MEDS: SENOKOT PO SCH (22:30)
[2016-08-01] MEDS: DILAUDID IV PRN ×7 (04:33→22:08)
[2016-08-01 06:32] LABS: Basophils % (Auto) 0.9 % (0.0-1.8); Eosinophils % (Auto) 1.6 % (0.0-4.3); Hemoglobin 7.3 gm/dl (10.1-14.3); Mean Corpuscular HGB Conc 32 % (30-34); Mean Corpuscular Hemoglobin 27 pg (28-32); Mean Corpuscular Volume 83 fl (79-97); Platelet Count 188 K/mm3 (140-440); Red Blood Count 2.76 M/mm3 (3.65-5.03); Red Cell Distribution Width 19.4 % (13.2-15.2); Reticulocyte % 2.06 % (0.78-2.58); White Blood Count 5.2 K/mm3 (4.5-11.0)
[2016-08-01] MEDS: ZOFRAN IV PRN (09:15)
[2016-08-01] MEDS: LOVENOX SUB-Q SCH (09:15)
[2016-08-01] MEDS: FOLVITE PO SCH (09:15)
[2016-08-01] MEDS: THERAGRAN Tab PO SCH (09:15)
[2016-08-01] MEDS: BENADRYL PO PRN (13:51)
--- NOTE | 2016-08-01 21:37 | Progress Note ---
Assessment and Plan Assessment and plan: 1. Sickle cell vaso-occlusive crisis. Continue IV hydration, pain control and supportive care UA is negative, CXR negative, infectious workup is negative 2. Asthma. Stable. 3. History of left lower extremity DVT. Patient has completed treatment with anticoagulants, and is no longer on them. We'll give prophylactic Lovenox for prevention History Interval history: She continues to complain of pains all over her body, denies fever, denies dysuria, denies shortness of breath, denies cough Hospitalist Physical - Physical exam Narrative exam: General: Mild distress due to pain HEENT: MMM, EOMI cardiac: S1-S2 heard lungs: clear to auscultation, abdomen: soft, nontender, nondistended bowel sounds positive extremities: no edema clubbing or cyanosis Skin: no rash or lesion Neuro: no focal deficit Psych: appropriate behavior and mood, cognition intact - Constitutional Vitals: Temp Pulse Resp BP Pulse Ox 98.8 F 96 H 20 153/69 100 08/01/16 16:28 08/01/16 16:28 08/01/16 17:28 08/01/16 16:28 08/01/16 16:28 General appearance: Present: no acute distress, well-nourished Results - Labs CBC & Chem 7: 08/02/16 09:00 07/31/16 Unknown Labs: Laboratory Last Values WBC 5.2 K/mm3 (4.5-11.0) 08/01/16 05:56 RBC 2.76 M/mm3 (3.65-5.03) L 08/01/16 05:56 Hgb 7.3 gm/dl (10.1-14.3) L 08/01/16 05:56 Hct 23.0 % (30.3-42.9) L 08/01/16 05:56 MCV 83 fl (79-97) 08/01/16 05:56 MCH 27 pg (28-32) L 08/01/16 05:56 MCHC 32 % (30-34) 08/01/16 05:56 RDW 19.4 % (13.2-15.2) H 08/01/16 05:56 Plt Count 188 K/mm3 (140-440) 08/01/16 05:56 Lymph % (Auto) 34.4 % (13.4-35.0) 08/01/16 05:56 [place] % (Auto) 9.3 % (0.0-7.3) H 08/01/16 05:56 Eos % (Auto) 1.6 % (0.0-4.3) 08/01/16 05:56 Baso % (Auto) 0.9 % (0.0-1.8) 08/01/16 05:56 Lymph # 1.8 K/mm3 (1.2-5.4) 08/01/16 05:56 [place] # 0.5 K/mm3 (0.0-0.8) 08/01/16 05:56 Eos # 0.1 K/mm3 (0.0-0.4) 08/01/16 05:56 Baso # 0.0 K/mm3 (0.0-0.1) 08/01/16 05:56 Seg Neutrophils % 53.8 % (40.0-70.0) 08/01/16 05:56 Seg Neutrophils # 2.8 K/mm3 (1.8-7.7) 08/01/16 05:56 Percent Retic 2.06 % (0.78-2.58) 08/01/16 05:56 Sodium 140 mmol/L (137-145) 07/31/16 Unknown Potassium 4.0 mmol/L (3.6-5.0) 07/31/16 Unknown Chloride 106.2 mmol/L (98-107) 07/31/16 Unknown Carbon Dioxide 24 mmol/L (22-30) 07/31/16 Unknown Anion Gap 14 mmol/L 07/31/16 Unknown BUN 4 mg/dL (7-17) L 07/31/16 Unknown Creatinine 0.6 mg/dL (0.7-1.2) L 07/31/16 Unknown Estimated GFR > 60 ml/min 07/31/16 Unknown BUN/Creatinine Ratio 6.66 % 07/31/16 Unknown Glucose 81 mg/dL (65-100) 07/31/16 Unknown Calcium 8.6 mg/dL (8.4-10.2) 07/31/16 Unknown Total Bilirubin < 0.2 mg/dL (0.1-1.2) 07/30/16 02:14 AST 13 units/L (5-40) 07/30/16 02:14 ALT 11 units/L (7-56) 07/30/16 02:14 Alkaline Phosphatase 62 units/L (35-129) 07/30/16 02:14 Lactate Dehydrogenase 150 units/L (91-180) 08/01/16 05:56 Total Protein 6.7 g/dL (6.3-8.2) 07/30/16 02:14 Albumin 3.7 g/dL (3.9-5) L 07/30/16 02:14 Albumin/Globulin Ratio 1.2 % 07/30/16 02:14 Lipase 46 units/L (13-60) 07/30/16 02:14 Urine Color Straw (Yellow) 07/30/16 08:40 Urine Turbidity Clear (Clear) 07/30/16 08:40 Urine pH 8.0 (5.0-7.0) H 07/30/16 08:40 Ur Specific [place] 1.004 (1.003-1.030) 07/30/16 08:40 Urine Protein <15 mg/dl mg/dL (Negative) 07/30/16 08:40 Urine Glucose (UA) Neg mg/dL (Negative) 07/30/16 08:40 Urine Ketones Neg mg/dL (Negative) 07/30/16 08:40 Urine Blood Lg (Negative) 07/30/16 08:40 Urine Nitrite Neg (Negative) 07/30/16 08:40 Urine Bilirubin Neg (Negative) 07/30/16 08:40 Urine Urobilinogen < 2.0 mg/dL (<2.0) 07/30/16 08:40 Ur Leukocyte Esterase Tr (Negative) 07/30/16 08:40 Urine WBC (Auto) 1.0 /HPF (0.0-6.0) 07/30/16 08:40 Urine RBC (Auto) 4.0 /HPF (0.0-6.0) 07/30/16 08:40 U Epithel Cells (Auto) 7.0 /HPF (0-13.0) 07/30/16 08:40 Urine Bacteria (Auto) 1+ /HPF (Negative) 07/30/16 08:40 Urine Mucus Few /HPF 07/30/16 08:40 Urine HCG, Qual Negative (Negative) 07/30/16 08:40 Blood Type O POSITIVE 07/31/16 00:50 Antibody Screen Negative 07/31/16 00:50 - Imaging and Cardiology Chest x-ray: image reviewed (no acute findings)
[2016-08-01] MEDS: SENOKOT PO SCH (22:09)
[2016-08-01] MEDS: NACL 0.9% 1000 ML 1,000 ML IV SCH (22:09)
[2016-08-02] MEDS: DILAUDID IV PRN ×6 (01:10→16:58)
[2016-08-02] MEDS: BENADRYL PO PRN ×3 (01:13→14:05)
[2016-08-02] MEDS: ZOFRAN IV PRN ×2 (01:13→11:23)
[2016-08-02] MEDS: NORCO 10/325 PO PRN (09:05)
[2016-08-02] MEDS: THERAGRAN Tab PO SCH (09:05)
[2016-08-02] MEDS: FOLVITE PO SCH (09:05)
[2016-08-02] MEDS: LOVENOX SUB-Q SCH (09:06)
[2016-08-02 09:21] LABS: Basophils % (Auto) 0.9 % (0.0-1.8); Eosinophils % (Auto) 1.6 % (0.0-4.3); Hematocrit 24.1 % (30.3-42.9); Hemoglobin 7.6 gm/dl (10.1-14.3); Mean Corpuscular HGB Conc 32 % (30-34); Mean Corpuscular Hemoglobin 27 pg (28-32); Mean Corpuscular Volume 84 fl (79-97); Platelet Count 194 K/mm3 (140-440); Red Blood Count 2.85 M/mm3 (3.65-5.03); Red Cell Distribution Width 19.3 % (13.2-15.2); Reticulocyte % 1.82 % (0.78-2.58)
--- NOTE | 2016-08-02 09:29 | Discharge Summary ---
Providers - Providers Date of Admission: 07/30/16 07:32 Attending physician: FRANCOIS KEITA MD Primary care physician: FLOOR FINISHER Hospitalization Condition: Stable Hospital course: This is a 30-year-old woman who presented with pain due to sickle cell crisis. She was admitted to medicine she was treated with IV fluids and analgesics. Infection workup was negative, UA and chest x-rays were both done and were negative. Her hemoglobin was stable. She clinically improved and is being sent home with oral analgesics Discharge diagnoses 1. sickle cell with vaso-occlusive crisis 2. Anemia due to hemolysis 3. Asthma Disposition: DISCHARGED TO HOME OR SELFCARE Time spent for discharge: 35 minutes Core Measure Documentation - Palliative Care Palliative Care/ Comfort Measures: Not Applicable - Core Measures Any of the following diagnoses?: none Exam - Constitutional Vitals: Temp Pulse Resp BP Pulse Ox 98.7 F 59 L 18 113/78 99 08/02/16 07:30 08/02/16 07:30 08/02/16 09:05 08/02/16 07:30 08/02/16 07:30 General appearance: Present: no acute distress, well-nourished - EENT Eyes: Present: PERRL ENT: hearing intact, clear oral mucosa - Neck Neck: Present: supple, normal ROM - Respiratory Respiratory effort: normal Respiratory: bilateral: CTA - Cardiovascular Heart Sounds: Present: S1 & S2. Absent: rub, click - Extremities Extremities: pulses symmetrical, No edema Peripheral Pulses: within normal limits - Abdominal General gastrointestinal: Present: soft, non-tender, non-distended, normal bowel sounds Female genitourinary: Present: normal - Integumentary Integumentary: Present: clear, warm, dry - Musculoskeletal Musculoskeletal: gait normal, strength equal bilaterally - Psychiatric Psychiatric: appropriate mood/affect, intact judgment & insight - Neurologic Neurologic: CNII-XII intact, moves all extremities Plan Follow up with: PRIMARY CARE, [Primary Care Provider] - 3-5 Days Prescriptions: Sennosides Tab [Senokot] 17.2 mg PO QHS PRN #60 tablet PRN Reason: Constipation HYDROcodone/APAP 10-325 [[place] 10-325 mg TAB] 1 each PO Q4-6H #30 tablet Multivitamin Tab [Multiple Vitamin TAB (Theragran)] 1 each PO QDAY #30 tablet
[2016-08-02 16:21] VITALS: BP 119/66
[2016-08-02] MEDS ORDERED: FLUSH HEPARIN IV ONE (18:16)
[2016-08-02] MEDS ORDERED: TRIPLE ANTIBIOTIC TP ONE (18:16)
== END 2016-08-02 19:59 | disposition home or self-care (01) | DRG 812 ==
LOC: ED 00:28 → 3A 07:32
PROVIDERS: ADMIT Hospitalist; ATTEND Internal Medicine
DX: D57.00 Hb-SS disease with crisis, unspecified (principal); D64.9 Anemia, unspecified; J45.909 Unspecified asthma, uncomplicated; I10 Essential (primary) hypertension; Z86.718 Personal history of other venous thrombosis and embolism
CPT/HCPCS: 36415; 71020; 80048; 80053; 81001; 81025; 83615; 83690; 85025; 85045; 86850; 86900; 86901; 96374; 96375; A6250; J1170; J1200; J1642; J1650; J2270; J2405; J7030

== ENCOUNTER 2016-09-09 20:03 | Emergency (ER) | payer SELFPAY ==
[2016-09-09 20:24] VITALS: BP 116/68
== END 2016-09-09 20:30 | disposition left against medical advice (07) ==
LOC: ED 20:03
DX: D57.00 Hb-SS disease with crisis, unspecified (principal); Z53.21 Procedure and treatment not carried out due to patient leaving prior to being seen by health care provider

== ENCOUNTER 2016-09-15 15:06 | Emergency (ER) | payer SELFPAY ==
[2016-09-15 17:46] LABS: Hematocrit 31.9 % (30.3-42.9); Hemoglobin 10.3 gm/dl (10.1-14.3); Mean Corpuscular HGB Conc 32 % (30-34); Mean Corpuscular Hemoglobin 29 pg (28-32); Mean Corpuscular Volume 88 fl (79-97); Platelet Count 281 K/mm3 (140-440); Red Blood Count 3.63 M/mm3 (3.65-5.03); Reticulocyte % 1.83 % (0.78-2.58); White Blood Count 10.4 K/mm3 (4.5-11.0)
[2016-09-15 17:54] LABS: Red Cell Distribution Width 23.6 % (13.2-15.2)
[2016-09-15 18:20] LABS: Sodium TNR mmol/L (137-145)
[2016-09-15 18:21] LABS: Anion Gap TNR mmol/L; Blood Urea Nitrogen TNR mg/dL (7-17); Carbon Dioxide TNR mmol/L (22-30); Chloride TNR mmol/L (98-107); Potassium TNR mmol/L (3.6-5.0)
[2016-09-15 18:22] LABS: BUN/Creatinine Ratio TNR; Calcium TNR mg/dL (8.4-10.2); Glucose TNR mg/dL (65-100)
[2016-09-15] MEDS ORDERED: TORADOL IV ONE (18:29)
[2016-09-15] MEDS ORDERED: DILAUDID IV ONE (18:29)
[2016-09-15] MEDS ORDERED: BENADRYL IV ONE (18:29)
[2016-09-15] MEDS ORDERED: ZOFRAN IV ONE (18:29)
[2016-09-15] MEDS ORDERED: NACL 0.9% 1000 ML 1,000 ML IV ONE (18:32)
[2016-09-15 18:51] LABS: Hematocrit 30.6 % (30.3-42.9); Hemoglobin 9.9 gm/dl (10.1-14.3); Mean Corpuscular HGB Conc 32 % (30-34); Mean Corpuscular Hemoglobin 28 pg (28-32); Mean Corpuscular Volume 88 fl (79-97); Platelet Count 284 K/mm3 (140-440); Reticulocyte % 1.86 % (0.78-2.58); White Blood Count 9.8 K/mm3 (4.5-11.0)
[2016-09-15 19:00] LABS: Red Cell Distribution Width 23.7 % (13.2-15.2)
[2016-09-15] MEDS ORDERED: D5NS 0.2% 1,000 ML IV SCH (19:00)
[2016-09-15 19:23] VITALS: BP 114/91
--- NOTE | 2016-09-15 19:55 | Emergency Department Report ---
ED General Adult HPI - General Chief complaint: Sickle Cell Crisis Stated complaint: SICKLE CELL PAIN Time Seen by Provider: 09/15/16 18:16 Source: patient Mode of arrival: Ambulatory Limitations: No Limitations - History of Present Illness Initial comments: 30-year-old female with a past medical history asthma, hypertension, sickle cell and recent rediagnosed lupus presents to the hospital with sickle cell crisis pain. Patient has pain to chest, back, legs, arms and stomach that started several days ago. Patient was just discharged from [facility] on the she had a 4 day admission for sickle cell crisis and required 2 units of blood. Patient complains of vomiting in addition to abdominal pain. No reports of fever, dysuria, diarrhea, cough, or shortness of breath. Severity scale (0 -10): 0 - Related Data Home Medications Medication Instructions Recorded Confirmed Last Taken Hydroxyurea [Hydrea] 500 mg PO BID 05/24/16 07/30/16 Unknown Ondansetron [Zofran ODT TAB] 4 mg PO Q6H 05/24/16 07/30/16 Unknown ALBUTEROL Inhaler [ProAir HFA 2 puff IH QID PRN 07/30/16 07/30/16 Unknown Inhaler] Folic Acid [Folvite] 1 mg PO QDAY 07/30/16 07/30/16 Unknown Previous Rx's Medication Instructions Recorded Last Taken Type HYDROcodone/APAP 10-325 [[place] 1 each PO Q4-6H #30 tablet 08/02/16 Unknown Rx 10-325 mg TAB] Multivitamin Tab [Multiple Vitamin 1 each PO QDAY #30 tablet 08/02/16 Unknown Rx TAB (Theragran)] Sennosides Tab [Senokot] 17.2 mg PO QHS PRN #60 tablet 08/02/16 Unknown Rx Allergies Allergy/AdvReac Type Severity Reaction Status Date / Time iodine Allergy Shortness Uncoded 05/24/16 06:34 of Breath ED Review of Systems ROS: Stated complaint: SICKLE CELL PAIN Other details as noted in HPI Comment: All other systems reviewed and negative Other: Constitutional: No fevers chills Eyes: No eye pain visual changes ENT: No ear pain or throat pain Neck: Denies pain Respiratory: Denies cough wheezing shortness of breath Cardiovascular: Positive chest pain GI: As per HPI : Denies dysuria Musculoskeletal: As per HPI Skin: Denies rash, lesions, erythema Neurologic: Denies headache, numbness, weakness Psychiatric: Denies suicidal ideation, hallucinations ED Past Medical Hx - Past Medical History Previous Medical History?: Yes Hx Hypertension: Yes Hx Sickle Cell Disease: Yes (hemoglobinopathy labs sent05/28/2016 revealed normal hemoglobin) Hx Asthma: Yes Additional medical history: Blood transfusion(multiply transfusions). Lupus - Surgical History Past Surgical History?: Yes Additional Surgical History: port to left chest wall - Social History Smoking Status: Never Smoker Substance Use Type: Non Opiate Pain, Prescribed - Medications Home Medications: Home Medications Medication Instructions Recorded Confirmed Last Taken Type Hydroxyurea [Hydrea] 500 mg PO BID 05/24/16 07/30/16 Unknown History Ondansetron [Zofran ODT TAB] 4 mg PO Q6H 05/24/16 07/30/16 Unknown History ALBUTEROL Inhaler [ProAir HFA 2 puff IH QID PRN 07/30/16 07/30/16 Unknown History Inhaler] Folic Acid [Folvite] 1 mg PO QDAY 07/30/16 07/30/16 Unknown History HYDROcodone/APAP 10-325 [[place] 1 each PO Q4-6H #30 tablet 08/02/16 Unknown Rx 10-325 mg TAB] Multivitamin Tab [Multiple Vitamin 1 each PO QDAY #30 tablet 08/02/16 Unknown Rx TAB (Theragran)] Sennosides Tab [Senokot] 17.2 mg PO QHS PRN #60 tablet 08/02/16 Unknown Rx ED Physical Exam - General Limitations: No Limitations - Other Other exam information: General: No limitations, patient is alert in no acute distress Head exam: Atraumatic, normocephalic Eyes exam: Normal appearance ENT: Moist mucous membrane, normal oropharynx Neck exam: Normal inspection, full range of motion, no meningismus nontender Respiratory exam: Clear to auscultation bilateral, no wheezes, rales, crackles Cardiovascular: Tachycardic regular rhythm Abdomen: Soft, distended abdomen, tenderness of the right lower quadrant Extremity: Full range of motion normal inspection no deformity Back: Normal Inspection, full range of motion, generalized back tenderness Neurologic: Alert, oriented x3, cranial nerves intact, no motor or sensory deficit Psychiatric: normal affect, normal mood Skin: Warm, dry, intact ED Course Vital Signs 09/15/16 09/15/16 09/15/16 15:11 17:15 18:08 Temperature 98.9 F Pulse Rate 125 H Respiratory 20 18 Rate Blood Pressure 121/82 117/76 Blood Pressure [Left] O2 Sat by Pulse 100 100 Oximetry 09/15/16 09/15/16 09/15/16 18:10 18:20 18:30 Temperature Pulse Rate Respiratory Rate Blood Pressure 117/76 117/76 123/83 Blood Pressure [Left] O2 Sat by Pulse 100 97 99 Oximetry 09/15/16 09/15/16 09/15/16 18:40 18:45 18:50 Temperature Pulse Rate Respiratory 16 Rate Blood Pressure 117/76 117/76 Blood Pressure [Left] O2 Sat by Pulse 99 100 Oximetry 09/15/16 09/15/16 19:00 19:22 Temperature Pulse Rate 92 H Respiratory 20 Rate Blood Pressure 114/81 Blood Pressure 114/91 [Left] O2 Sat by Pulse 98 93 Oximetry - Reevaluation(s) Reevaluation #1: 09/15/16 19:40 I was informed of this time the patient signed out AGAINST MEDICAL ADVICE per her report was deaccessed. She never received CT scan, chest x-ray, her repeat labs are still pending at disposition. ED Medical Decision Making - Lab Data Result diagrams: 09/15/16 Unknown 09/15/16 Unknown Lab Results 09/15/16 09/15/16 09/15/16 Range/Units 18:35 18:35 18:35 WBC 9.8 (4.5-11.0) K/mm3 RBC 3.50 L (3.65-5.03) M/mm3 Hgb 9.9 L (10.1-14.3) gm/dl Hct 30.6 (30.3-42.9) % MCV 88 (79-97) fl MCH 28 (28-32) pg MCHC 32 (30-34) % RDW 23.7 H (13.2-15.2) % Plt Count 284 (140-440) K/mm3 Percent Retic 1.86 (0.78-2.58) % Sodium Potassium Chloride Carbon Dioxide Anion Gap BUN Creatinine Estimated GFR BUN/Creatinine Ratio Glucose Calcium Total Bilirubin 0.20 (0.1-1.2) mg/dL AST 16 (5-40) units/L ALT 12 (7-56) units/L Alkaline Phosphatase 66 (35-129) units/L Total Protein 7.4 (6.3-8.2) g/dL Albumin 4.0 (3.9-5) g/dL Albumin/Globulin Ratio 1.2 % Lipase 40 (13-60) units/L HCG, Qual Negative (Negative) Urine Color (Yellow) Urine Turbidity (Clear) Urine pH (5.0-7.0) Ur Specific [place] (1.003-1.030) Urine Protein (Negative) mg/dL Urine Glucose (UA) (Negative) mg/dL Urine Ketones (Negative) mg/dL Urine Blood (Negative) Urine Nitrite (Negative) Urine Bilirubin (Negative) Urine Urobilinogen (<2.0) mg/dL Ur Leukocyte Esterase (Negative) Urine WBC (Auto) (0.0-6.0) /HPF Urine RBC (Auto) (0.0-6.0) /HPF U Epithel Cells (Auto) (0-13.0) /HPF Urine Mucus /HPF 09/15/16 09/15/16 09/15/16 Range/Units 19:31 Unknown Unknown WBC 10.4 (4.5-11.0) K/mm3 RBC 3.63 L (3.65-5.03) M/mm3 Hgb 10.3 (10.1-14.3) gm/dl Hct 31.9 (30.3-42.9) % MCV 88 (79-97) fl MCH 29 (28-32) pg MCHC 32 (30-34) % RDW 23.6 H (13.2-15.2) % Plt Count 281 (140-440) K/mm3 Percent Retic 1.83 (0.78-2.58) % Sodium TNR Potassium TNR Chloride TNR Carbon Dioxide TNR Anion Gap TNR BUN TNR Creatinine TNR Estimated GFR TNR BUN/Creatinine Ratio TNR Glucose TNR Calcium TNR Total Bilirubin (0.1-1.2) mg/dL AST (5-40) units/L ALT (7-56) units/L Alkaline Phosphatase (35-129) units/L Total Protein (6.3-8.2) g/dL Albumin (3.9-5) g/dL Albumin/Globulin Ratio % Lipase (13-60) units/L HCG, Qual (Negative) Urine Color Straw (Yellow) Urine Turbidity Clear (Clear) Urine pH 7.0 (5.0-7.0) Ur Specific [place] 1.009 (1.003-1.030) Urine Protein <15 mg/dl (Negative) mg/dL Urine Glucose (UA) Neg (Negative) mg/dL Urine Ketones Neg (Negative) mg/dL Urine Blood Neg (Negative) Urine Nitrite Neg (Negative) Urine Bilirubin Neg (Negative) Urine Urobilinogen < 2.0 (<2.0) mg/dL Ur Leukocyte Esterase Neg (Negative) Urine WBC (Auto) 1.0 (0.0-6.0) /HPF Urine RBC (Auto) 1.0 (0.0-6.0) /HPF U Epithel Cells (Auto) 6.0 (0-13.0) /HPF Urine Mucus Few /HPF Labs did not cross over due to metastatic glitch. The paper copy has been sent for reviewed by laboratory and reveals a sodium of 137, potassium 3.6, chloride 98.5, CO2 25, 17, BUN 6, creatinine 0.7, BUN/creatinine ratio 8.57, glucose 87, GFR greater than 60, calcium 8.9 - Medical Decision Making Once again patient presents here shortly after being discharged from another hospital with complaints of continued pain. Patient received 1 round of medication and then to leave and nurse informed me that her vascular access Was DC'd and patient left after signing an AMA form. Tachycardia improved prior to leaving as per last recorded vital signs Laboratory results reviewed after patient left the department and revealed no significant abnormality. - Differential Diagnosis appendicitis, sickle cell crisis, anemia, drug-seeking, acute chest Critical Care Time: No Critical care attestation.: If time is entered above; I have spent that time in minutes in the direct care of this critically ill patient, excluding procedure time. ED Disposition Clinical Impression: Sickle-cell with crisis Disposition: LEFT AGAINST MEDICAL ADVICE Is pt being admited?: No Condition: Stable Time of Disposition: 19:40
[2016-09-15 19:56] LABS: Bilirubin,Urine NEG (Negative); Blood,Urine NEG (Negative); Ketones,Urine NEG (Negative); Leukocyte Esterase,Urine NEG (Negative); Mucus,Urine FEW /HPF; Nitrite,Urine NEG (Negative); Protein,Urine <15 mg/dL mg/dL (Negative); Urobilinogen,Urine < 2.0 mg/dL (<2.0)
[2016-09-15 20:10] LABS: Alanine Aminotransferase 12 units/L (7-56); Albumin/Globulin Ratio 1.2 %; Alkaline Phosphatase 66 units/L (35-129); Lipase 40 units/L (13-60); Total Protein 7.4 g/dL (6.3-8.2)
[2016-09-15 20:12] LABS: Anion Gap 17 mmol/L; BUN/Creatinine Ratio 8.57; Blood Urea Nitrogen 6 mg/dL (7-17); Calcium 8.9 mg/dL (8.4-10.2); Carbon Dioxide 25 mmol/L (22-30); Chloride 98.5 mmol/L (98-107); Glucose 87 mg/dL (65-100); Potassium 3.6 mmol/L (3.6-5.0); Sodium 137 mmol/L (137-145)
[2016-09-15 20:15] LABS: Bilirubin,Direct < 0.2 mg/dL (0-0.2)
== END 2016-09-15 19:54 | disposition left against medical advice (07) ==
LOC: ED 15:06
DX: D57.00 Hb-SS disease with crisis, unspecified (principal); I10 Essential (primary) hypertension; J45.909 Unspecified asthma, uncomplicated; Z88.8 Allergy status to other drugs, medicaments and biological substances
CPT/HCPCS: 36415; 80048; 80074; 81001; 83690; 84703; 85027; 85045; 96361; 96374; 96375; 99283; J1170; J1200; J1885; J2405; J7030

== ENCOUNTER 2016-10-03 13:14 | Emergency (ER) | payer SELFPAY ==
[2016-10-03 13:33] VITALS: BP 123/83
[2016-10-03] MEDS ORDERED: D5NS 0.2% 1,000 ML IV SCH (14:00)
--- NOTE | 2016-10-09 22:19 | ED Elopement Review ---
ED Pt Elopement review - Call Back decision Pt Call Back Decision: No action required
== END 2016-10-03 19:30 | disposition left against medical advice (07) ==
LOC: ED 13:14
DX: D57.00 Hb-SS disease with crisis, unspecified (principal); Z53.21 Procedure and treatment not carried out due to patient leaving prior to being seen by health care provider

== ENCOUNTER 2016-10-10 19:32 | Inpatient (IN) | payer OTHER ==
[2016-10-10] MEDS ORDERED: D5NS 0.2% 1,000 ML IV SCH (21:00)
[2016-10-11 06:53] LABS: Basophils % (Auto) 0.8 % (0.0-1.8); Eosinophils % (Auto) 0.5 % (0.0-4.3); Hematocrit 30.1 % (30.3-42.9); Hemoglobin 9.7 gm/dl (10.1-14.3); Mean Corpuscular HGB Conc 32 % (30-34); Mean Corpuscular Hemoglobin 29 pg (28-32); Mean Corpuscular Volume 89 fl (79-97); Platelet Count 402 K/mm3 (140-440); Red Blood Count 3.37 M/mm3 (3.65-5.03); Reticulocyte % 2.07 % (0.78-2.58); White Blood Count 5.8 K/mm3 (4.5-11.0)
[2016-10-11 06:59] LABS: Red Cell Distribution Width 22.7 % (13.2-15.2)
[2016-10-11] MEDS ORDERED: DILAUDID ONE ×2 (07:48→12:07)
[2016-10-11] MEDS ORDERED: DILAUDID IV ONE ×2 (07:58→08:49)
--- NOTE | 2016-10-11 08:49 | Emergency Department Report ---
ED General Adult HPI - General Chief complaint: Sickle Cell Crisis Stated complaint: SICKLE CELL PAIN Time Seen by Provider: 10/11/16 08:40 Source: patient, RN notes reviewed, old records reviewed Mode of arrival: Ambulatory Limitations: No Limitations - History of Present Illness Initial comments: This is a 31-year-old female. She is previously unknown to me. She has a medical history of sickle cell disease, left-sided thoracic wall port, asthma, left lower extremity DVT. The patient presents to the ER with chest pain, abdominal pain, and total body pain. She reports her pain is constant. It has been present for a week. It worsens with palpation. It decreases with rest. The chest pain also increases with deep inspiration. Patient reports that she' s had a fever at home to 102. She admits to mild dysuria. She denies sore throat. She admits to cough. Her symptoms typically improved with hydromorphone. -: Gradual Location: chest, back, abdomen, left, right, upper extremity, lower extremity Severity scale (0 -10): 10 Quality: burning, stabbing, aching Consistency: constant Improves with: medication Worsens with: movement Associated Symptoms: chest pain, cough, fever/chills, loss of appetite, malaise , weakness - Related Data Home Medications Medication Instructions Recorded Confirmed Last Taken Hydroxyurea [Hydrea] 500 mg PO BID 05/24/16 10/11/16 10/10/16 Ondansetron [Zofran ODT TAB] 4 mg PO Q6H 05/24/16 10/11/16 10/10/16 ALBUTEROL Inhaler [ProAir HFA 2 puff IH QID PRN 07/30/16 10/11/16 Unknown Inhaler] Folic Acid [Folvite] 1 mg PO QDAY 07/30/16 10/11/16 10/10/16 Previous Rx's Medication Instructions Recorded Last Taken Type HYDROcodone/APAP 10-325 [[place] 1 each PO Q4-6H #30 tablet 08/02/16 10/10/16 Rx 10-325 mg TAB] Multivitamin Tab [Multiple Vitamin 1 each PO QDAY #30 tablet 08/02/16 10/10/16 Rx TAB (Theragran)] Sennosides Tab [Senokot] 17.2 mg PO QHS PRN #60 tablet 08/02/16 Unknown Rx Allergies Allergy/AdvReac Type Severity Reaction Status Date / Time iodine Allergy Shortness Uncoded 05/24/16 06:34 of Breath ED Review of Systems ROS: Stated complaint: SICKLE CELL PAIN Other details as noted in HPI Constitutional: fever, malaise, weakness Eyes: denies: vision change ENT: denies: epistaxis Respiratory: see HPI Cardiovascular: chest pain Gastrointestinal: abdominal pain Genitourinary: as per HPI Musculoskeletal: back pain, arthralgia, myalgia Skin: denies: lesions Neurological: weakness ED Past Medical Hx - Past Medical History Previous Medical History?: Yes Hx Hypertension: Yes Hx Sickle Cell Disease: Yes (hemoglobinopathy labs sent05/28/2016 revealed normal hemoglobin) Hx Asthma: Yes Additional medical history: Blood transfusion(multiply transfusions). Lupus - Surgical History Past Surgical History?: Yes Additional Surgical History: port to left chest wall - Social History Smoking Status: Never Smoker Substance Use Type: None - Medications Home Medications: Home Medications Medication Instructions Recorded Confirmed Last Taken Type Hydroxyurea [Hydrea] 500 mg PO BID 05/24/16 10/11/16 10/10/16 History Ondansetron [Zofran ODT TAB] 4 mg PO Q6H 05/24/16 10/11/16 10/10/16 History ALBUTEROL Inhaler [ProAir HFA 2 puff IH QID PRN 07/30/16 10/11/16 Unknown History Inhaler] Folic Acid [Folvite] 1 mg PO QDAY 07/30/16 10/11/16 10/10/16 History HYDROcodone/APAP 10-325 [[place] 1 each PO Q4-6H #30 tablet 08/02/16 10/11/16 Rx 10-325 mg TAB] Multivitamin Tab [Multiple Vitamin 1 each PO QDAY #30 tablet 08/02/16 10/11/16 10/10/16 Rx TAB (Theragran)] Sennosides Tab [Senokot] 17.2 mg PO QHS PRN #60 tablet 08/02/16 10/11/16 Unknown Rx ED Physical Exam - General Limitations: No Limitations General appearance: alert, in distress - Head Head exam: Present: atraumatic, normocephalic - Eye Eye exam: Present: normal appearance, PERRL, EOMI. Absent: nystagmus - ENT ENT exam: Present: normal exam, normal orophraynx, mucous membranes moist - Neck Neck exam: Present: normal inspection, full ROM. Absent: tenderness, meningismus - Respiratory Respiratory exam: Present: normal lung sounds bilaterally, other (there is a left-sided thoracic wall port noted, with no redness, pus or streaking). Absent : respiratory distress, wheezes, rales, rhonchi, stridor, chest wall tenderness - Cardiovascular Cardiovascular Exam: Present: normal rhythm, tachycardia, normal heart sounds. Absent: systolic murmur, diastolic murmur, rubs, gallop - GI/Abdominal GI/Abdominal exam: Present: soft, tenderness, normal bowel sounds. Absent: distended, guarding, rebound, rigid - Extremities Exam Extremities exam: Present: normal inspection, full ROM, tenderness, normal capillary refill, other (there is diffuse along bony tenderness. There is no redness, pus or streaking. There is no crepitus.). Absent: pedal edema, joint swelling, calf tenderness - Back Exam Back exam: Present: normal inspection, paraspinal tenderness, vertebral tenderness - Neurological Exam Neurological exam: Present: alert, oriented X3, other (Extraocular movements intact. Tongue midline. No facial droop. Facial sensation intact to light touch in the V1, V2, V3 distribution bilaterally. 5 and 5 strength in 4 extremities.. Sensation is intact to light touch in 4 extremities.). Absent: motor sensory deficit - Psychiatric Psychiatric exam: Present: anxious - Skin Skin exam: Present: warm, dry, intact, normal color. Absent: rash ED Course Vital Signs 10/10/16 10/11/16 10/11/16 20:27 03:24 05:24 Temperature 99.4 F Pulse Rate 105 H 110 H Respiratory 18 16 Rate Blood Pressure 123/85 117/76 Blood Pressure [Right] O2 Sat by Pulse 100 100 100 Oximetry 10/11/16 10/11/16 10/11/16 05:26 05:28 05:30 Temperature Pulse Rate 104 H 108 H Respiratory 13 Rate Blood Pressure Blood Pressure [Right] O2 Sat by Pulse 100 100 100 Oximetry 10/11/16 10/11/16 10/11/16 05:31 05:32 05:33 Temperature Pulse Rate 102 H 103 H 107 H Respiratory 14 15 20 Rate Blood Pressure 112/70 112/70 Blood Pressure [Right] O2 Sat by Pulse 100 100 100 Oximetry 10/11/16 10/11/16 10/11/16 05:35 05:37 05:39 Temperature Pulse Rate 106 H 110 H 108 H Respiratory 18 18 12 Rate Blood Pressure 112/70 112/70 112/70 Blood Pressure [Right] O2 Sat by Pulse 100 100 100 Oximetry 10/11/16 10/11/16 10/11/16 06:01 06:25 07:00 Temperature Pulse Rate 119 H 93 H Respiratory 13 18 13 Rate Blood Pressure 112/70 101/62 Blood Pressure [Right] O2 Sat by Pulse 100 98 100 Oximetry 10/11/16 10/11/16 10/11/16 07:30 07:50 08:00 Temperature Pulse Rate 119 H 104 H Respiratory 16 16 10 L Rate Blood Pressure 120/53 Blood Pressure 114/62 [Right] O2 Sat by Pulse 100 99 Oximetry 10/11/16 10/11/16 10/11/16 08:20 08:45 08:55 Temperature 99.7 F H 99.7 F H Pulse Rate Respiratory 16 Rate Blood Pressure Blood Pressure [Right] O2 Sat by Pulse Oximetry 10/11/16 10/11/16 10/11/16 09:00 09:36 10:00 Temperature Pulse Rate 117 H 98 H Respiratory 13 16 9 L Rate Blood Pressure 101/59 104/62 Blood Pressure [Right] O2 Sat by Pulse 100 100 Oximetry 10/11/16 10/11/16 10/11/16 10:06 11:00 12:27 Temperature Pulse Rate 102 H Respiratory 16 15 16 Rate Blood Pressure 113/65 Blood Pressure [Right] O2 Sat by Pulse 99 Oximetry - Reevaluation(s) Reevaluation #1: 10/11/16 10:06 and differential diagnosis: Sickle cell crisis, pneumonia, urinary tract infection, acute coronary syndrome , pulmonary embolus, acute chest syndrome, intra-abdominal infection, pneumonia Assessment and plan: 31-year-old female with sickle cell crisis. She has a low- grade temperature rectally, and is tachycardic. She has diffuse reproducible musculoskeletal extremity tenderness, diffuse abdominal tenderness, and reproducible chest wall tenderness. Patient's pain is treated aggressively with multiple doses of hydromorphone and pain medication. Her abdomen is diffusely tender, therefore CT scan of the abdomen and pelvis is ordered. EKG is pending. Urinalysis is pending. D-dimer is pending. Given clinical history and physical examination, I think acute coronary syndrome is unlikely, I find the patient to be clinically low risk by the heart score. Reevaluation #2: 10/11/16 10:48 Troponin negative. D-dimer negative. Chest x-ray negative. CT abdomen and pelvis negative. Still uncomfortable. EKG unremarkable. Patient will be admitted. The hospitalist is pagezan Levin accepts patient ED Medical Decision Making - Lab Data Result diagrams: 10/11/16 06:00 10/11/16 Unknown Vital Signs 10/10/16 10/11/16 10/11/16 20:27 03:24 05:24 Temperature 99.4 F Pulse Rate 105 H 110 H Respiratory 18 16 Rate Blood Pressure 123/85 117/76 Blood Pressure [Right] O2 Sat by Pulse 100 100 100 Oximetry 10/11/16 10/11/16 10/11/16 05:26 05:28 05:30 Temperature Pulse Rate 104 H 108 H Respiratory 13 Rate Blood Pressure Blood Pressure [Right] O2 Sat by Pulse 100 100 100 Oximetry 10/11/16 10/11/16 10/11/16 05:31 05:32 05:33 Temperature Pulse Rate 102 H 103 H 107 H Respiratory 14 15 20 Rate Blood Pressure 112/70 112/70 Blood Pressure [Right] O2 Sat by Pulse 100 100 100 Oximetry 10/11/16 10/11/16 10/11/16 05:35 05:37 05:39 Temperature Pulse Rate 106 H 110 H 108 H Respiratory 18 18 12 Rate Blood Pressure 112/70 112/70 112/70 Blood Pressure [Right] O2 Sat by Pulse 100 100 100 Oximetry 10/11/16 10/11/16 10/11/16 06:01 06:25 07:00 Temperature Pulse Rate 119 H 93 H Respiratory 13 18 13 Rate Blood Pressure 112/70 101/62 Blood Pressure [Right] O2 Sat by Pulse 100 98 100 Oximetry 10/11/16 10/11/16 10/11/16 07:30 07:50 08:20 Temperature Pulse Rate 119 H Respiratory 16 16 16 Rate Blood Pressure Blood Pressure 114/62 [Right] O2 Sat by Pulse 100 Oximetry 10/11/16 10/11/16 08:55 09:36 Temperature 99.7 F H Pulse Rate Respiratory 16 Rate Blood Pressure Blood Pressure [Right] O2 Sat by Pulse Oximetry Lab Results 10/11/16 10/11/16 10/11/16 Range/Units 06:00 09:36 Unknown WBC 5.8 (4.5-11.0) K/mm3 RBC 3.37 L (3.65-5.03) M/mm3 Hgb 9.7 L (10.1-14.3) gm/dl Hct 30.1 L (30.3-42.9) % MCV 89 (79-97) fl MCH 29 (28-32) pg MCHC 32 (30-34) % RDW 22.7 H (13.2-15.2) % Plt Count 402 (140-440) K/mm3 Lymph % (Auto) 22.1 (13.4-35.0) % Cache % (Auto) 14.8 H (0.0-7.3) % Eos % (Auto) 0.5 (0.0-4.3) % Baso % (Auto) 0.8 (0.0-1.8) % Lymph # 1.3 (1.2-5.4) K/mm3 Cache # 0.8 (0.0-0.8) K/mm3 Eos # 0.0 (0.0-0.4) K/mm3 Baso # 0.0 (0.0-0.1) K/mm3 Seg Neutrophils % 61.8 (40.0-70.0) % Seg Neutrophils # 3.6 (1.8-7.7) K/mm3 Percent Retic 2.07 (0.78-2.58) % Sodium 137 (137-145) mmol/L Potassium 3.7 (3.6-5.0) mmol/L Chloride 100.8 (98-107) mmol/L Carbon Dioxide 22 (22-30) mmol/L Anion Gap 18 mmol/L BUN 7 (7-17) mg/dL Creatinine 0.6 L (0.7-1.2) mg/dL Estimated GFR > 60 ml/min BUN/Creatinine Ratio 11.66 % Glucose 83 (65-100) mg/dL Calcium 9.5 (8.4-10.2) mg/dL Total Bilirubin 0.20 (0.1-1.2) mg/dL AST 18 (5-40) units/L ALT 14 (7-56) units/L Alkaline Phosphatase 69 (35-129) units/L Lactate Dehydrogenase 251 H (91-180) units/L Total Creatine Kinase 70 (30-135) units/L Troponin T < 0.010 (0.00-0.029) ng/mL Total Protein 7.7 (6.3-8.2) g/dL Albumin 4.1 (3.9-5) g/dL Albumin/Globulin Ratio 1.1 % Urine Color Yellow (Yellow) Urine Turbidity Clear (Clear) Urine pH 6.0 (5.0-7.0) Ur Specific [place] 1.020 (1.003-1.030) Urine Protein 30 mg/dl (Negative) mg/dL Urine Glucose (UA) Neg (Negative) mg/dL Urine Ketones 20 (Negative) mg/dL Urine Blood Neg (Negative) Urine Nitrite Neg (Negative) Urine Bilirubin Neg (Negative) Urine Urobilinogen < 2.0 (<2.0) mg/dL Ur Leukocyte Esterase Neg (Negative) Urine WBC (Auto) 1.0 (0.0-6.0) /HPF Urine RBC (Auto) 3.0 (0.0-6.0) /HPF U Epithel Cells (Auto) 4.0 (0-13.0) /HPF Urine Mucus 2+ /HPF - EKG Data -: EKG Interpreted by Me EKG shows normal: sinus rhythm, axis, intervals, QRS complexes, ST-T waves - Radiology Data Radiology results: pending, report reviewed, image reviewed xr chest negative ct a/p negative Critical care attestation.: If time is entered above; I have spent that time in minutes in the direct care of this critically ill patient, excluding procedure time. ED Disposition Clinical Impression: Sickle-cell with crisis Disposition: DC-09 OP ADMIT IP TO THIS HOSP Is pt being admited?: Yes Does the pt Need Aspirin: Yes Condition: Good
[2016-10-11] MEDS ORDERED: VISTARIL ONE (09:15)
[2016-10-11 09:36] LABS: Alanine Aminotransferase 14 units/L (7-56); Albumin 4.1 g/dL (3.9-5); Albumin/Globulin Ratio 1.1 %; Alkaline Phosphatase 69 units/L (35-129); Anion Gap 18 mmol/L; BUN/Creatinine Ratio 11.66; Blood Urea Nitrogen 7 mg/dL (7-17); Calcium 9.5 mg/dL (8.4-10.2); Carbon Dioxide 22 mmol/L (22-30); Chloride 100.8 mmol/L (98-107); Creatine Kinase 70 units/L (30-135); Glucose 83 mg/dL (65-100); Lactate Dehydrogenase 251 units/L (91-180); Potassium 3.7 mmol/L (3.6-5.0); Sodium 137 mmol/L (137-145); Total Protein 7.7 g/dL (6.3-8.2)
[2016-10-11 10:00] LABS: Bilirubin,Urine NEG (Negative); Blood,Urine NEG (Negative); Ketones,Urine 20 mg/dL (Negative); Leukocyte Esterase,Urine NEG (Negative); Mucus,Urine 2+ /HPF; Nitrite,Urine NEG (Negative); Urobilinogen,Urine < 2.0 mg/dL (<2.0)
[2016-10-11] MEDS ORDERED: D5/0.45NS 1,000 ML IV SCH (10:00)
[2016-10-11] MEDS ORDERED: DILAUDID IV STA (10:03)
--- NOTE | 2016-10-11 10:09 | XRay Report ---
Chest 2 views: History: Chest pain. Findings: Normal cardiomediastinal silhouette the trachea is midline. No consolidation, pneumothorax or pleural effusion. Tip of the left Port-A-Cath in mid superior vena cava. Impression: No acute cardiopulmonary findings.
[2016-10-11 10:30] LABS: INR 1.09 (0.87-1.13)
--- NOTE | 2016-10-11 10:47 | Cat Scan Report ---
CT scan of abdomen and pelvis without IV contrast: History: Abdominal pain. Findings: Normal liver spleen pancreas and gallbladder. Normal adrenals and kidney parenchyma and bladder. No free intraperitoneal fluid or air. No evidence of adenopathy. There is a large cyst noted to the left of midline measuring 5 cm in diameter. No definite evidence of appendicitis or diverticulitis. Grossly bowel gas pattern normal with stool in colon. Impression: Large left pelvic cyst, probably ovarian.
[2016-10-11] MEDS ORDERED: TYLENOL PO PRN (11:15)
[2016-10-11] MEDS ORDERED: MILK OF MAGNESIA PO PRN (11:15)
[2016-10-11] MEDS ORDERED: DULCOLAX PR PRN (11:15)
--- NOTE | 2016-10-11 11:47 | Admit Criteria Form ---
Admission Criteria Documentation: SICKLE CELL DISEASE Clinical Indications for Admission to Inpatient Care (Place 'X' for any and all applicable criteria): Admission is indicated for ANY ONE of the following(1)(2)(3)(4)(5): [X]I. Inpatient admission required rather than observation care because of ANY ONE of the following: [ ]a) Altered mental status [ ]b) High fever or infection requiring inpatient admission as indicated by ANY ONE of the following: [ ]A. Appropriate outpatient observation care antimicrobial treatment unavailable, not effective, or not appropriate for infection [ ]B. Documented bacteremia [ ]C. Temp >104.9F (40.5C) (oral) [ ]D. Temp >103.1F (oral) or <96.8F(rectal) that does not respond to all emergency treatment measures [ ]c) Supplemental O2 or respiratory therapy for over 24 h that are performable only in acute inpatient setting [X]d) Continuous parenteral narcoticsother major pain intervention for >24 h performable only in acute inpatient setting. [ ]e) Exchange transfusion [ ]f) Other condition, treatment or monitoring requiring inpatient admission [ ]II. Acute chest syndrome indicated by ALL of the following (10): [ ]a) New alveolar infiltrate involving at least one lung segment [ ]b) Associated pulmonary symptoms or findings as indicated by ANY ONE of the following: [ ]i) Chest pain [ ]ii) Hypoxemia [ ]iii) Tachypnea/dyspnea [ ]iv) Wheezing [ ]v) Cough [ ]vi) Sputum production [ ]III. Significant hypoxemia or acidosis (more severe than baseline) [ ]IV. Emergent surgery needed (eg, acute cholecystitis) [ ]V. -related complication(11) [ ]. Splenic or hepatic sequestration(12) [ ]VII. Aplastic crisis [ ]VIII. Priapism or other vascular complication(13) [ ]IX. Traumatic hyphema [A](14) [ ]X. Underlying condition requiring hospitalization (eg, osteomyelitis) [ ]XI. Signs or symptoms of central nervous system injury indicated by ANY ONE of the following: [ ]a) Stroke(9) [ ]b) Seizure [ ]c) Other significant central nervous system symptom or event [ ]XII. Acute renal failure Extended stay beyond goal length of stay may be needed for: [ ]a) Inadequate pain control [ ]b) Acute chest syndrome [ ]c) Sequestration or aplastic crisis (12) [ ]d) Pneumonia and asthma exacerbation [ ]e) Neurologic or vascular complications (25) [ ]f) Infection (eg, osteomyelitis) that requires ongoing treatment) The original [facility] content created by [facility] has been revised. The portions of the content which have been revised are identified through the use of italic text or in bold, and [facility] has neither reviewed nor approved the modified material. All other unmodified content is copyright [facility]. Please see references footnoted in the original [facility] edition 2016 Admission Criteria Met: Yes
--- NOTE | 2016-10-11 12:06 | History and Physical Report ---
History of Present Illness Date of examination: 10/11/16 Date of admission: 10/11/16 11:15 Chief complaint: Sickle cell crisis and pain all over her body History of present illness: The patient is a 31 years old -Indian female with past medical history of sickle cell, left chest port, asthma and LLE DVT who presents to the ED with a week left knee pain, abdominal, chest and total body pain . The left knee pain began morning at approximately around 4:00 am while the patient was walking to the bathroom. The pain was described as aching and had a gradual onset. The patient had difficulty sleeping because of the pain. The pain continued to gradually increase in severity to an 8/10 today. The pain was exacerbated with walking or standing and was not significantly relieved with Percocet that the patient had by prescription. The knee pain is unlike any prior episode of pain crisis. The patient reports some chills and mild chest pain, but denies shortness of breath, N/V, cough, or recent trauma to the knees. Patient reported that she has had a fever at home but did not check her temperature. Patient received Dilaudid in the ED and she stated that her symptoms improved. Past History Past Medical History: DVT, other (Asthma, has left-side thoracic port.) Past Surgical History: No surgical history Social history: single, Lives alone Family history: diabetes (Sickle cell disease ), hypertension Medications and Allergies Allergies Allergy/AdvReac Type Severity Reaction Status Date / Time iodine Allergy Shortness Uncoded 05/24/16 06:34 of Breath Home Medications Medication Instructions Recorded Confirmed Last Taken Type Hydroxyurea [Hydrea] 500 mg PO BID 05/24/16 10/11/16 10/10/16 History Ondansetron [Zofran ODT TAB] 4 mg PO Q6H 05/24/16 10/11/16 10/10/16 History ALBUTEROL Inhaler [ProAir HFA 2 puff IH QID PRN 07/30/16 10/11/16 Unknown History Inhaler] Folic Acid [Folvite] 1 mg PO QDAY 07/30/16 10/11/16 10/10/16 History HYDROcodone/APAP 10-325 [[place] 1 each PO Q4-6H #30 tablet 08/02/16 10/11/16 Rx 10-325 mg TAB] Multivitamin Tab [Multiple Vitamin 1 each PO QDAY #30 tablet 08/02/16 10/11/16 10/10/16 Rx TAB (Theragran)] Sennosides Tab [Senokot] 17.2 mg PO QHS PRN #60 tablet 08/02/16 10/11/16 Unknown Rx Active Meds: Active Medications Acetaminophen (Tylenol) 650 mg PO Q4H PRN PRN Reason: Pain MILD(1-3)/Fever >100.5/CARDENAS Bisacodyl (Dulcolax) 10 mg SD QDAY PRN PRN Reason: Constipation unrelieved by [facility] Enoxaparin Sodium (Lovenox) 40 mg SUB-Q QDAY [facility] Famotidine (Pepcid) 20 mg IV BID [facility] Hydromorphone HCl (Dilaudid) 1 mg IV Q4H PRN PRN Reason: Pain , Severe (7-10) Dextrose/Sodium Chloride (D5ns 0.2%) 1,000 mls @ 250 mls/hr IV DIRECT [facility]LA[facility] Last Admin: 10/11/16 07:49 Dose: 250 mls/hr Dextrose/Sodium Chloride (D5/0.45ns) 1,000 mls @ 0 mls/hr IV DIRECT [facility]LA[place] PRN Reason: Wide Open Dextrose/Sodium Chloride (D5/0.45ns) 1,000 mls @ 100 mls/hr IV DIRECT [facility] Magnesium Hydroxide (Milk Of Magnesia) 30 ml PO Q4H PRN PRN Reason: Constipation Ondansetron HCl (Zofran) 4 mg IV Q8H PRN PRN Reason: N/V unrelieved by Reglan Review of Systems Constitutional: chronic pain, no weight loss, no weight gain, no fever, no chills, no sweats Ears, nose, mouth and throat: no ear pain, no ear discharge, no tinnitis, no decreased hearing Breasts: normal Cardiovascular: chest pain Respiratory: cough Gastrointestinal: abdominal pain Genitourinary Female: no dysmenorrhea, no pelvic pain, no flank pain, no menorrhagia Musculoskeletal: muscle weakness, no neck stiffness, no neck pain, no shooting arm pain, no arm numbness/tingling, no low back pain Integumentary: no rash, no pruritis, no redness Neurological: no paralysis, no weakness, no parathesias Psychiatric: no anxiety, no memory loss, no insomnia Endocrine: no cold intolerance, no heat intolerance, no polyphagia Hematologic/Lymphatic: no easy bruising, no easy bleeding Allergic/Immunologic: no urticaria, no allergic rhinitis Exam - Constitutional Vitals: Temp Pulse Resp BP Pulse Ox 99.7 F H 98 H 16 104/62 100 10/11/16 08:55 10/11/16 10:00 10/11/16 10:06 10/11/16 10:00 10/11/16 10:00 General appearance: Present: mild distress - EENT Eyes: Present: PERRL, EOM intact ENT: hearing intact, clear oral mucosa, dentition normal - Neck Neck: Present: supple, normal ROM - Respiratory Respiratory effort: normal Respiratory: bilateral: CTA - Cardiovascular Heart rate: 102 Heart Sounds: Present: S1 & S2 - Extremities Extremities: no ischemia Extremity abnormal: other (Left lower extremity pain) Peripheral Pulses: within normal limits - Abdominal General gastrointestinal: Present: soft, non-tender Female genitourinary: Present: deferred - Rectal Rectal Exam: deferred - Integumentary Integumentary: Present: clear, warm, dry - Musculoskeletal Musculoskeletal: gait normal, strength equal bilaterally - Psychiatric Psychiatric: appropriate mood/affect, intact judgment & insight - Neurologic Neurologic: CNII-XII intact, moves all extremities - Allied Health Allied health notes reviewed: nursing Results - Labs CBC & Chem 7: 10/11/16 06:00 10/11/16 Unknown Labs: Laboratory Last Values WBC 5.8 K/mm3 (4.5-11.0) 10/11/16 06:00 RBC 3.37 M/mm3 (3.65-5.03) L 10/11/16 06:00 Hgb 9.7 gm/dl (10.1-14.3) L 10/11/16 06:00 Hct 30.1 % (30.3-42.9) L 10/11/16 06:00 MCV 89 fl (79-97) 10/11/16 06:00 MCH 29 pg (28-32) 10/11/16 06:00 MCHC 32 % (30-34) 10/11/16 06:00 RDW 22.7 % (13.2-15.2) H 10/11/16 06:00 Plt Count 402 K/mm3 (140-440) 10/11/16 06:00 Lymph % (Auto) 22.1 % (13.4-35.0) 10/11/16 06:00 [place] % (Auto) 14.8 % (0.0-7.3) H 10/11/16 06:00 Eos % (Auto) 0.5 % (0.0-4.3) 10/11/16 06:00 Baso % (Auto) 0.8 % (0.0-1.8) 10/11/16 06:00 Lymph # 1.3 K/mm3 (1.2-5.4) 10/11/16 06:00 [place] # 0.8 K/mm3 (0.0-0.8) 10/11/16 06:00 Eos # 0.0 K/mm3 (0.0-0.4) 10/11/16 06:00 Baso # 0.0 K/mm3 (0.0-0.1) 10/11/16 06:00 Seg Neutrophils % 61.8 % (40.0-70.0) 10/11/16 06:00 Seg Neutrophils # 3.6 K/mm3 (1.8-7.7) 10/11/16 06:00 Percent Retic 2.07 % (0.78-2.58) 10/11/16 06:00 PT 14.0 Sec. (12.2-14.9) 10/11/16 10:00 INR 1.09 (0.87-1.13) 10/11/16 10:00 D-Dimer 193.34 ng/mlDDU (0-234) 10/11/16 10:00 Sodium 137 mmol/L (137-145) 10/11/16 Unknown Potassium 3.7 mmol/L (3.6-5.0) 10/11/16 Unknown Chloride 100.8 mmol/L (98-107) 10/11/16 Unknown Carbon Dioxide 22 mmol/L (22-30) 10/11/16 Unknown Anion Gap 18 mmol/L 10/11/16 Unknown BUN 7 mg/dL (7-17) 10/11/16 Unknown Creatinine 0.6 mg/dL (0.7-1.2) L 10/11/16 Unknown Estimated GFR > 60 ml/min 10/11/16 Unknown BUN/Creatinine Ratio 11.66 % 10/11/16 Unknown Glucose 83 mg/dL (65-100) 10/11/16 Unknown Lactic Acid 1.00 mmol/L (0.7-2.0) 10/11/16 10:00 Calcium 9.5 mg/dL (8.4-10.2) 10/11/16 Unknown Total Bilirubin 0.20 mg/dL (0.1-1.2) 10/11/16 Unknown AST 18 units/L (5-40) 10/11/16 Unknown ALT 14 units/L (7-56) 10/11/16 Unknown Alkaline Phosphatase 69 units/L (35-129) 10/11/16 Unknown Lactate Dehydrogenase 251 units/L (91-180) H 10/11/16 Unknown Total Creatine Kinase 70 units/L (30-135) 10/11/16 Unknown Troponin T < 0.010 ng/mL (0.00-0.029) 10/11/16 Unknown Total Protein 7.7 g/dL (6.3-8.2) 10/11/16 Unknown Albumin 4.1 g/dL (3.9-5) 10/11/16 Unknown Albumin/Globulin Ratio 1.1 % 10/11/16 Unknown HCG, Quant < 2 mIU/mL (0-4) 10/11/16 10:00 Urine Color Yellow (Yellow) 10/11/16 09:36 Urine Turbidity Clear (Clear) 10/11/16 09:36 Urine pH 6.0 (5.0-7.0) 10/11/16 09:36 Ur Specific [place] 1.020 (1.003-1.030) 10/11/16 09:36 Urine Protein 30 mg/dl mg/dL (Negative) 10/11/16 09:36 Urine Glucose (UA) Neg mg/dL (Negative) 10/11/16 09:36 Urine Ketones 20 mg/dL (Negative) 10/11/16 09:36 Urine Blood Neg (Negative) 10/11/16 09:36 Urine Nitrite Neg (Negative) 10/11/16 09:36 Urine Bilirubin Neg (Negative) 10/11/16 09:36 Urine Urobilinogen < 2.0 mg/dL (<2.0) 10/11/16 09:36 Ur Leukocyte Esterase Neg (Negative) 10/11/16 09:36 Urine WBC (Auto) 1.0 /HPF (0.0-6.0) 10/11/16 09:36 Urine RBC (Auto) 3.0 /HPF (0.0-6.0) 10/11/16 09:36 U Epithel Cells (Auto) 4.0 /HPF (0-13.0) 10/11/16 09:36 Urine Mucus 2+ /HPF 10/11/16 09:36 Urine HCG, Qual Negative (Negative) 10/11/16 09:36 - Imaging and Cardiology Chest x-ray: image reviewed (No acute Cardiopulmonary findings) Assessment and Plan Advance Directives: Yes Plan of care discussed with patient/family: Yes - Patient Problems (1) Sickle-cell disease with vaso-occlusive pain Current Visit: Yes Status: Acute Plan to address problem: [facility] Chest x-ray shows no acute cardiopulmonary findings We initiated IV fluid hydration Pain control with Dilaudid (2) Anemia Current Visit: No Status: Acute Qualifiers: Anemia type: A Iron deficiency anemia type: I Vitamin B12 deficiency anemia type: V Folate deficiency anemia type: F Bone marrow failure anemia type: B Hemolytic anemia type: H Other causes of anemia: O Chronic kidney disease stage: C Plan to address problem: . Patient received 2 units PRBC decub in [facility] yesterday Hemoglobin and hematocrit stable at this time Closely monitor CBC (3) Asthma Current Visit: Yes Status: Acute Qualifiers: Asthma severity: A Asthma complication type: A Plan to address problem: Patient currently stable Discussed to follow up with her primary care (4) DVT prophylaxis Current Visit: Yes Status: Acute Plan to address problem: Lovenox
[2016-10-11] MEDS ORDERED: D5W/0.45% NACL/KCL 20 MEQ 20 MEQ/1,000 ML BAG IV ONE (12:09)
[2016-10-11] MEDS ORDERED: D5/0.45NS 1,000 ML IV ONE (12:13)
[2016-10-11] MEDS: ZOFRAN IV PRN (15:02)
[2016-10-11] MEDS: BENADRYL IV PRN (17:45)
[2016-10-11] MEDS: DILAUDID IV PRN ×2 (17:46→22:54)
[2016-10-11] MEDS: PEPCID IV SCH (22:54)
[2016-10-12] MEDS: BENADRYL IV PRN ×5 (00:04→23:14)
[2016-10-12] MEDS: ZOFRAN IV PRN (00:04)
[2016-10-12] MEDS: D5/0.45NS 1,000 ML IV SCH ×2 (02:54→12:53)
[2016-10-12] MEDS: DILAUDID IV PRN ×6 (02:55→23:14)
[2016-10-12 07:08] LABS: Basophils % (Auto) 0.6 % (0.0-1.8); Eosinophils % (Auto) 1.7 % (0.0-4.3); Hematocrit 25.7 % (30.3-42.9); Hemoglobin 8.3 gm/dl (10.1-14.3); Mean Corpuscular HGB Conc 32 % (30-34); Mean Corpuscular Hemoglobin 29 pg (28-32); Mean Corpuscular Volume 91 fl (79-97); Platelet Count 393 K/mm3 (140-440); Red Blood Count 2.84 M/mm3 (3.65-5.03); White Blood Count 5.7 K/mm3 (4.5-11.0)
[2016-10-12 07:17] LABS: Anion Gap 14 mmol/L; BUN/Creatinine Ratio 7.14; Blood Urea Nitrogen 5 mg/dL (7-17); Calcium 8.1 mg/dL (8.4-10.2); Carbon Dioxide 23 mmol/L (22-30); Chloride 104.4 mmol/L (98-107); Glucose 73 mg/dL (65-100); Potassium 3.6 mmol/L (3.6-5.0); Sodium 138 mmol/L (137-145)
[2016-10-12 07:35] LABS: Red Cell Distribution Width 22.5 % (13.2-15.2)
--- NOTE | 2016-10-12 09:19 | Progress Note ---
Assessment and Plan - Patient Problems (1) Sickle-cell disease with vaso-occlusive pain Current Visit: Yes Status: Acute Plan to address problem: Continue IV fluid hydration, adequate pain control and supportive care. (2) Anemia Current Visit: No Status: Acute Qualifiers: Anemia type: A Iron deficiency anemia type: I Vitamin B12 deficiency anemia type: V Folate deficiency anemia type: F Bone marrow failure anemia type: B Hemolytic anemia type: H Other causes of anemia: O Chronic kidney disease stage: C Plan to address problem: . Continue to monitor H&H closely. Transfuse as needed. (3) Asthma Current Visit: Yes Status: Acute Qualifiers: Asthma severity: A Asthma complication type: A Plan to address problem: Patient currently stable Discussed to follow up with her primary care (4) DVT prophylaxis Current Visit: Yes Status: Acute Plan to address problem: Lovenox History Interval history: Patient still complains of pain all over. Hospitalist Physical - Constitutional Vitals: Temp Pulse Resp BP Pulse Ox 98.9 F 94 H 18 118/56 99 10/12/16 07:00 10/12/16 07:00 10/12/16 07:00 10/12/16 07:00 10/12/16 07:00 General appearance: Present: mild distress - EENT Eyes: Present: PERRL, EOM intact ENT: hearing intact, clear oral mucosa, dentition normal - Neck Neck: Present: supple, normal ROM - Respiratory Respiratory effort: normal Respiratory: bilateral: CTA - Cardiovascular Rhythm: regular Heart Sounds: Present: S1 & S2. Absent: gallop, rub - Extremities Extremities: no ischemia, No edema, Full ROM - Abdominal General gastrointestinal: soft, non-tender, non-distended, normal bowel sounds - Integumentary Integumentary: Present: clear, warm, dry - Neurologic Neurologic: CNII-XII intact, moves all extremities Results - Labs CBC & Chem 7: 10/12/16 05:35 10/12/16 05:35 Labs: Laboratory Last Values WBC 5.7 K/mm3 (4.5-11.0) 10/12/16 05:35 RBC 2.84 M/mm3 (3.65-5.03) L 10/12/16 05:35 Hgb 8.3 gm/dl (10.1-14.3) L 10/12/16 05:35 Hct 25.7 % (30.3-42.9) L 10/12/16 05:35 MCV 91 fl (79-97) 10/12/16 05:35 MCH 29 pg (28-32) 10/12/16 05:35 MCHC 32 % (30-34) 10/12/16 05:35 RDW 22.5 % (13.2-15.2) H 10/12/16 05:35 Plt Count 393 K/mm3 (140-440) 10/12/16 05:35 Lymph % (Auto) 37.0 % (13.4-35.0) H 10/12/16 05:35 [place] % (Auto) 15.9 % (0.0-7.3) H 10/12/16 05:35 Eos % (Auto) 1.7 % (0.0-4.3) 10/12/16 05:35 Baso % (Auto) 0.6 % (0.0-1.8) 10/12/16 05:35 Lymph # 2.1 K/mm3 (1.2-5.4) 10/12/16 05:35 [place] # 0.9 K/mm3 (0.0-0.8) H 10/12/16 05:35 Eos # 0.1 K/mm3 (0.0-0.4) 10/12/16 05:35 Baso # 0.0 K/mm3 (0.0-0.1) 10/12/16 05:35 Seg Neutrophils % 44.8 % (40.0-70.0) 10/12/16 05:35 Seg Neutrophils # 2.5 K/mm3 (1.8-7.7) 10/12/16 05:35 Percent Retic 2.07 % (0.78-2.58) 10/11/16 06:00 PT 14.0 Sec. (12.2-14.9) 10/11/16 10:00 INR 1.09 (0.87-1.13) 10/11/16 10:00 D-Dimer 193.34 ng/mlDDU (0-234) 10/11/16 10:00 Sodium 138 mmol/L (137-145) 10/12/16 05:35 Potassium 3.6 mmol/L (3.6-5.0) 10/12/16 05:35 Chloride 104.4 mmol/L (98-107) 10/12/16 05:35 Carbon Dioxide 23 mmol/L (22-30) 10/12/16 05:35 Anion Gap 14 mmol/L 10/12/16 05:35 BUN 5 mg/dL (7-17) L 10/12/16 05:35 Creatinine 0.7 mg/dL (0.7-1.2) 10/12/16 05:35 Estimated GFR > 60 ml/min 10/12/16 05:35 BUN/Creatinine Ratio 7.14 % 10/12/16 05:35 Glucose 73 mg/dL (65-100) 10/12/16 05:35 Lactic Acid 1.00 mmol/L (0.7-2.0) 10/11/16 10:00 Calcium 8.1 mg/dL (8.4-10.2) L 10/12/16 05:35 Total Bilirubin 0.20 mg/dL (0.1-1.2) 10/11/16 Unknown AST 18 units/L (5-40) 10/11/16 Unknown ALT 14 units/L (7-56) 10/11/16 Unknown Alkaline Phosphatase 69 units/L (35-129) 10/11/16 Unknown Lactate Dehydrogenase 251 units/L (91-180) H 10/11/16 Unknown Total Creatine Kinase 70 units/L (30-135) 10/11/16 Unknown Troponin T < 0.010 ng/mL (0.00-0.029) 10/11/16 Unknown Total Protein 7.7 g/dL (6.3-8.2) 10/11/16 Unknown Albumin 4.1 g/dL (3.9-5) 10/11/16 Unknown Albumin/Globulin Ratio 1.1 % 10/11/16 Unknown HCG, Quant < 2 mIU/mL (0-4) 10/11/16 10:00 Urine Color Yellow (Yellow) 10/11/16 09:36 Urine Turbidity Clear (Clear) 10/11/16 09:36 Urine pH 6.0 (5.0-7.0) 10/11/16 09:36 Ur Specific [place] 1.020 (1.003-1.030) 10/11/16 09:36 Urine Protein 30 mg/dl mg/dL (Negative) 10/11/16 09:36 Urine Glucose (UA) Neg mg/dL (Negative) 10/11/16 09:36 Urine Ketones 20 mg/dL (Negative) 10/11/16 09:36 Urine Blood Neg (Negative) 10/11/16 09:36 Urine Nitrite Neg (Negative) 10/11/16 09:36 Urine Bilirubin Neg (Negative) 10/11/16 09:36 Urine Urobilinogen < 2.0 mg/dL (<2.0) 10/11/16 09:36 Ur Leukocyte Esterase Neg (Negative) 10/11/16 09:36 Urine WBC (Auto) 1.0 /HPF (0.0-6.0) 10/11/16 09:36 Urine RBC (Auto) 3.0 /HPF (0.0-6.0) 10/11/16 09:36 U Epithel Cells (Auto) 4.0 /HPF (0-13.0) 10/11/16 09:36 Urine Mucus 2+ /HPF 10/11/16 09:36 Urine HCG, Qual Negative (Negative) 10/11/16 09:36
[2016-10-12] MEDS: PEPCID IV SCH ×2 (10:34→23:13)
[2016-10-12] MEDS: LOVENOX SUB-Q SCH (11:03)
--- NOTE | 2016-10-12 21:59 | Consultation ---
History of Present Illness - Reason for Consult Consult date: 10/12/16 SCD/pain crisis. Requesting physician: JEREL SEGURA - History of Present Illness Thank you for this consult. Patient seen/examined, record reviewed, case d/w patient. 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 Currently, she is on 100cc fluid, 1mg [id number], and benadryl q6hr. She claims all sub therapeuitc at this time.Will adjust some of those for better control of her sxs. Past History Past Medical History: anemia, DVT, stroke, other (Asthma, has left-side thoracic port.) Past Surgical History: No surgical history Social history: no significant social history, Family history: no significant family history, diabetes (Sickle cell disease ), hypertension Medications and Allergies Allergies Allergy/AdvReac Type Severity Reaction Status Date / Time iodine Allergy Shortness Uncoded 05/24/16 06:34 of Breath Home Medications Medication Instructions Recorded Confirmed Last Taken Type Hydroxyurea [Hydrea] 500 mg PO BID 05/24/16 10/11/16 10/10/16 History Ondansetron [Zofran ODT TAB] 4 mg PO Q6H 05/24/16 10/11/16 10/10/16 History ALBUTEROL Inhaler [ProAir HFA 2 puff IH QID PRN 07/30/16 10/11/16 Unknown History Inhaler] Folic Acid [Folvite] 1 mg PO QDAY 07/30/16 10/11/16 10/10/16 History HYDROcodone/APAP 10-325 [[place] 1 each PO Q4-6H #30 tablet 08/02/16 10/11/16 Rx 10-325 mg TAB] Multivitamin Tab [Multiple Vitamin 1 each PO QDAY #30 tablet 08/02/16 10/11/16 10/10/16 Rx TAB (Theragran)] Sennosides Tab [Senokot] 17.2 mg PO QHS PRN #60 tablet 08/02/16 10/11/16 Unknown Rx Active Meds: Active Medications Acetaminophen (Tylenol) 650 mg PO Q4H PRN PRN Reason: Pain MILD(1-3)/Fever >100.5/CARDENAS Bisacodyl (Dulcolax) 10 mg [place] QDAY PRN PRN Reason: Constipation unrelieved by MOM Diphenhydramine HCl (Benadryl) 25 mg IV Q6H PRN PRN Reason: Itching Last Admin: 10/12/16 18:52 Dose: 25 mg Enoxaparin Sodium (Lovenox) 40 mg SUB-Q QDAY [facility] Last Admin: 10/12/16 11:03 Dose: 40 mg Famotidine (Pepcid) 20 mg IV BID [facility] Last Admin: 10/12/16 10:34 Dose: 20 mg Hydromorphone HCl (Dilaudid) 1 mg IV Q4H PRN PRN Reason: Pain , Severe (7-10) Last Admin: 10/12/16 18:52 Dose: 1 mg Dextrose/Sodium Chloride (D5/0.45ns) 1,000 mls @ 100 mls/hr IV DIRECT [facility] Last Admin: 10/12/16 12:53 Dose: 100 mls/hr Magnesium Hydroxide (Milk Of Magnesia) 30 ml PO Q4H PRN PRN Reason: Constipation Ondansetron HCl (Zofran) 4 mg IV Q8H PRN PRN Reason: N/V unrelieved by Reglan Last Admin: 10/12/16 00:04 Dose: 4 mg Review of Systems Constitutional: weakness, chronic pain Breasts: deferred Musculoskeletal: low back pain Neurological: weakness Exam - Constitutional Vitals: Temp Pulse Resp BP Pulse Ox 99 F 97 H 18 125/67 98 10/12/16 20:34 10/12/16 20:34 10/12/16 20:34 10/12/16 20:34 10/12/16 20:34 General appearance: Present: mild distress, well-nourished - EENT Eyes: Present: PERRL ENT: hearing intact, clear oral mucosa - Neck Neck: Present: supple, normal ROM - Respiratory Respiratory effort: normal Respiratory: bilateral: CTA - Cardiovascular Heart Sounds: Present: S1 & S2. Absent: rub, click - Extremities Extremities: pulses symmetrical, No edema Peripheral Pulses: within normal limits - Abdominal General gastrointestinal: Present: soft, non-tender, non-distended, normal bowel sounds Female genitourinary: Present: normal - Integumentary Integumentary: Present: clear, warm, dry - Musculoskeletal Musculoskeletal: gait normal, strength equal bilaterally - Psychiatric Psychiatric: appropriate mood/affect, intact judgment & insight - Neurologic Neurologic: CNII-XII intact, moves all extremities Results - Labs CBC & Chem 7: 10/12/16 05:35 10/12/16 05:35 Labs: Abnormal lab results 10/12/16 10/12/16 Range/Units 05:35 05:35 RBC 2.84 L (3.65-5.03) M/mm3 Hgb 8.3 L (10.1-14.3) gm/dl Hct 25.7 L (30.3-42.9) % RDW 22.5 H (13.2-15.2) % Lymph % (Auto) 37.0 H (13.4-35.0) % [place] % (Auto) 15.9 H (0.0-7.3) % [place] # 0.9 H (0.0-0.8) K/mm3 BUN 5 L (7-17) mg/dL Calcium 8.1 L (8.4-10.2) mg/dL Assessment and Plan - Patient Problems (1) Asthma Current Visit: Yes Status: Acute Qualifiers: Asthma severity: A Asthma complication type: A Plan to address problem: supportive (2) Sickle-cell disease with vaso-occlusive pain Current Visit: Yes Status: Acute (3) Sickle-cell with crisis Current Visit: Yes Status: Acute Plan to address problem: Pain control, hydration,labs. (4) Anemia Current Visit: No Status: Acute Qualifiers: Anemia type: A Iron deficiency anemia type: I Vitamin B12 deficiency anemia type: V Folate deficiency anemia type: F Bone marrow failure anemia type: B Hemolytic anemia type: H Other causes of anemia: O Chronic kidney disease stage: C
[2016-10-12] MEDS: D5NS 0.2% 1,000 ML IV SCH (23:12)
[2016-10-13 02:54] LABS: Basophils % (Auto) 0.7 % (0.0-1.8); Eosinophils % (Auto) 1.4 % (0.0-4.3); Hematocrit 28.3 % (30.3-42.9); Hemoglobin 8.9 gm/dl (10.1-14.3); Mean Corpuscular HGB Conc 32 % (30-34); Mean Corpuscular Hemoglobin 29 pg (28-32); Mean Corpuscular Volume 90 fl (79-97); Platelet Count 527 K/mm3 (140-440); Red Blood Count 3.13 M/mm3 (3.65-5.03); Reticulocyte % 1.91 % (0.78-2.58); White Blood Count 6.7 K/mm3 (4.5-11.0)
[2016-10-13 03:02] LABS: Red Cell Distribution Width 23.1 % (13.2-15.2)
[2016-10-13 03:08] LABS: Anion Gap 18 mmol/L; Blood Urea Nitrogen 3 mg/dL (7-17); Calcium 8.5 mg/dL (8.4-10.2); Carbon Dioxide 21 mmol/L (22-30); Chloride 102.9 mmol/L (98-107); Glucose 80 mg/dL (65-100); Potassium 3.6 mmol/L (3.6-5.0); Sodium 138 mmol/L (137-145)
[2016-10-13] MEDS: DILAUDID IV PRN ×6 (03:17→23:10)
[2016-10-13] MEDS: BENADRYL IV PRN ×6 (03:19→23:09)
[2016-10-13] MEDS: D5NS 0.2% 1,000 ML IV SCH ×3 (05:38→23:17)
[2016-10-13] MEDS: LOVENOX SUB-Q SCH (10:58)
[2016-10-13] MEDS: PEPCID IV SCH ×2 (10:58→21:58)
--- NOTE | 2016-10-13 18:52 | Progress Note ---
Assessment and Plan (1) Sickle-cell disease with vaso-occlusive pain Current Visit: Yes Status: Acute Plan to address problem: Continue IV fluid hydration, adequate pain control and supportive care. (2) Anemia Current Visit: No Status: Acute Qualifiers: Anemia type: A Iron deficiency anemia type: I Vitamin B12 deficiency anemia type: V Folate deficiency anemia type: F Bone marrow failure anemia type: B Hemolytic anemia type: H Other causes of anemia: O Chronic kidney disease stage: C Plan to address problem: . Continue to monitor H&H closely. Transfuse as needed. (3) Asthma Current Visit: Yes Status: Acute Qualifiers: Asthma severity: A Asthma complication type: A Plan to address problem: Patient currently stable Discussed to follow up with her primary care (4) DVT prophylaxis Current Visit: Yes Status: Acute Plan to address problem: Subjective Date of service: 10/13/16 Principal diagnosis: Sickle cell crisis Interval history: Still in pain Objective - Exam Narrative Exam: In Moderate pain - Constitutional Vitals: Vital Signs - 12hr 10/13/16 10/13/16 10/13/16 08:45 10:00 16:00 Temperature 98.6 F 99.0 F Pulse Rate [ 104 H 112 H Radial] Respiratory 20 18 Rate Blood Pressure 132/86 130/77 [Left Radial Artery] O2 Sat by Pulse 100 96 Oximetry General appearance: Present: no acute distress, well-nourished - EENT Eyes: PERRL, EOM intact ENT: hearing intact, clear oral mucosa Ears: bilateral: normal - Neck Neck: supple, normal ROM - Respiratory Respiratory effort: normal Respiratory: bilateral: CTA - Breasts Breasts: normal - Cardiovascular Heart rate: 78 Rhythm: regular Heart Sounds: Present: S1 & S2. Absent: gallop, rub Extremities: pulses intact, No edema, normal color, Full ROM - Gastrointestinal General gastrointestinal: Present: soft, non-tender, non-distended, normal bowel sounds - Genitourinary Female genitourinary: normal - Integumentary Integumentary: clear, warm, dry - Musculoskeletal Musculoskeletal: 1, strength equal bilaterally - Neurologic Neurologic: moves all extremities - Psychiatric Psychiatric: memory intact, appropriate mood/affect, intact judgment & insight - Labs CBC & Chem 7: 10/13/16 23:04 10/13/16 23:04 Labs: Abnormal lab results 10/13/16 10/13/16 Range/Units 02:28 02:28 RBC 3.13 L (3.65-5.03) M/mm3 Hgb 8.9 L (10.1-14.3) gm/dl Hct 28.3 L (30.3-42.9) % RDW 23.1 H (13.2-15.2) % Plt Count 527 H (140-440) K/mm3 [place] % (Auto) 15.8 H (0.0-7.3) % [place] # 1.1 H (0.0-0.8) K/mm3 Carbon Dioxide 21 L (22-30) mmol/L BUN 3 L (7-17) mg/dL Creatinine 0.6 L (0.7-1.2) mg/dL
[2016-10-13] MEDS: ZOFRAN IV PRN (19:08)
[2016-10-13 23:20] LABS: Basophils % (Auto) 0.4 % (0.0-1.8); Eosinophils % (Auto) 1.9 % (0.0-4.3); Hematocrit 26.5 % (30.3-42.9); Hemoglobin 8.6 gm/dl (10.1-14.3); Mean Corpuscular HGB Conc 33 % (30-34); Mean Corpuscular Hemoglobin 29 pg (28-32); Mean Corpuscular Volume 89 fl (79-97); Platelet Count 545 K/mm3 (140-440); Red Blood Count 2.98 M/mm3 (3.65-5.03); Reticulocyte % 2.02 % (0.78-2.58); White Blood Count 6.7 K/mm3 (4.5-11.0)
[2016-10-13 23:27] LABS: Red Cell Distribution Width 22.3 % (13.2-15.2)
[2016-10-13 23:33] LABS: Anion Gap 15 mmol/L; Blood Urea Nitrogen 3 mg/dL (7-17); Carbon Dioxide 23 mmol/L (22-30); Chloride 98.6 mmol/L (98-107); Glucose 93 mg/dL (65-100); Potassium 3.6 mmol/L (3.6-5.0); Sodium 133 mmol/L (137-145)
--- NOTE | 2016-10-14 00:01 | Event Note ---
Date: 10/13/16 Patient seen/examined.
--- NOTE | 2016-10-14 00:11 | Consultation ---
History of Present Illness - Reason for Consult Consult date: 10/13/16 - History of Present Illness Patient see/examined, 10/13/16 with late entry. Labs reviewed. no new issues at this time. Past History Past Medical History: anemia, DVT, stroke, other (Asthma, has left-side thoracic port.) Past Surgical History: No surgical history Social history: no significant social history, Family history: no significant family history, diabetes (Sickle cell disease ), hypertension Medications and Allergies Allergies Allergy/AdvReac Type Severity Reaction Status Date / Time iodine Allergy Shortness Uncoded 05/24/16 06:34 of Breath Home Medications Medication Instructions Recorded Confirmed Last Taken Type Hydroxyurea [Hydrea] 500 mg PO BID 05/24/16 10/11/16 10/10/16 History Ondansetron [Zofran ODT TAB] 4 mg PO Q6H 05/24/16 10/11/16 10/10/16 History ALBUTEROL Inhaler [ProAir HFA 2 puff IH QID PRN 07/30/16 10/11/16 Unknown History Inhaler] Folic Acid [Folvite] 1 mg PO QDAY 07/30/16 10/11/16 10/10/16 History HYDROcodone/APAP 10-325 [[place] 1 each PO Q4-6H #30 tablet 08/02/16 10/11/16 Rx 10-325 mg TAB] Multivitamin Tab [Multiple Vitamin 1 each PO QDAY #30 tablet 08/02/16 10/11/16 10/10/16 Rx TAB (Theragran)] Sennosides Tab [Senokot] 17.2 mg PO QHS PRN #60 tablet 08/02/16 10/11/16 Unknown Rx Active Meds: Active Medications Acetaminophen (Tylenol) 650 mg PO Q4H PRN PRN Reason: Pain MILD(1-3)/Fever >100.5/CARDENAS Bisacodyl (Dulcolax) 10 mg [place] QDAY PRN PRN Reason: Constipation unrelieved by MOM Diphenhydramine HCl (Benadryl) 12.5 mg IV Q4HR PRN PRN Reason: Itching Last Admin: 10/13/16 23:09 Dose: 12.5 mg Enoxaparin Sodium (Lovenox) 40 mg SUB-Q QDAY [facility]LAINE Last Admin: 10/13/16 10:58 Dose: 40 mg Famotidine (Pepcid) 20 mg IV BID [facility] Last Admin: 10/13/16 21:58 Dose: 20 mg Hydromorphone HCl (Dilaudid) 2 mg IV Q4HR PRN PRN Reason: Pain , Severe (7-10) Last Admin: 10/13/16 23:10 Dose: 2 mg Dextrose/Sodium Chloride (D5ns 0.2%) 1,000 mls @ 150 mls/hr IV DIRECT [facility] Last Admin: 10/13/16 23:17 Dose: 150 mls/hr Magnesium Hydroxide (Milk Of Magnesia) 30 ml PO Q4H PRN PRN Reason: Constipation Ondansetron HCl (Zofran) 4 mg IV Q8H PRN PRN Reason: N/V unrelieved by Reglan Last Admin: 10/13/16 19:08 Dose: 4 mg Review of Systems Constitutional: chronic pain Exam - Constitutional Vitals: Temp Pulse Resp BP Pulse Ox 99.3 F 99 H 20 126/63 100 10/13/16 22:00 10/13/16 22:00 10/13/16 22:00 10/13/16 22:00 10/13/16 22:00 General appearance: Present: mild distress, well-nourished - EENT Eyes: Present: PERRL ENT: hearing intact, clear oral mucosa - Neck Neck: Present: supple, normal ROM - Respiratory Respiratory effort: normal Respiratory: bilateral: CTA - Cardiovascular Heart Sounds: Present: S1 & S2. Absent: rub, click - Extremities Extremities: pulses symmetrical, No edema Peripheral Pulses: within normal limits - Abdominal General gastrointestinal: Present: soft, non-tender, non-distended, normal bowel sounds Female genitourinary: Present: normal - Integumentary Integumentary: Present: clear, warm, dry - Psychiatric Psychiatric: appropriate mood/affect, intact judgment & insight - Neurologic Neurologic: CNII-XII intact, moves all extremities Results - Labs CBC & Chem 7: 10/13/16 23:04 10/13/16 23:04 Labs: Abnormal lab results 10/13/16 10/13/16 10/13/16 Range/Units 02:28 02:28 23:04 RBC 3.13 L 2.98 L (3.65-5.03) M/mm3 Hgb 8.9 L 8.6 L (10.1-14.3) gm/dl Hct 28.3 L 26.5 L (30.3-42.9) % RDW 23.1 H 22.3 H (13.2-15.2) % Plt Count 527 H 545 H (140-440) K/mm3 [place] % (Auto) 36.7 H (13.4-35.0) % [place] % (Auto) 15.8 H 14.3 H (0.0-7.3) % [place] # 1.1 H 1.0 H (0.0-0.8) K/mm3 Sodium (137-145) mmol/L Carbon Dioxide 21 L (22-30) mmol/L BUN 3 L (7-17) mg/dL Creatinine 0.6 L (0.7-1.2) mg/dL // Range/Units 23:04 RBC (3.65-5.03) M/mm3 Hgb (10.1-14.3) gm/dl Hct (30.3-42.9) % RDW (13.2-15.2) % Plt Count (140-440) K/mm3 Lymph % (Auto) (13.4-35.0) % [place] % (Auto) (0.0-7.3) % [place] # (0.0-0.8) K/mm3 Sodium 133 L (137-145) mmol/L Carbon Dioxide (22-30) mmol/L BUN 3 L (7-17) mg/dL Creatinine 0.6 L (0.7-1.2) mg/dL Assessment and Plan - Patient Problems (1) Asthma Current Visit: Yes Status: Acute Qualifiers: Asthma severity: A Asthma complication type: A Plan to address problem: supportive (2) Sickle-cell disease with vaso-occlusive pain Current Visit: Yes Status: Acute (3) Sickle-cell with crisis Current Visit: Yes Status: Acute Plan to address problem: Pain control, hydration,labs. (4) Anemia Current Visit: No Status: Acute Qualifiers: Anemia type: A Iron deficiency anemia type: I Vitamin B12 deficiency anemia type: V Folate deficiency anemia type: F Bone marrow failure anemia type: B Hemolytic anemia type: H Other causes of anemia: O Chronic kidney disease stage: C
[2016-10-14] MEDS: BENADRYL IV PRN ×5 (03:45→21:21)
[2016-10-14] MEDS: DILAUDID IV PRN ×5 (03:45→21:22)
--- NOTE | 2016-10-14 09:18 | Progress Note ---
Assessment and Plan (1) Sickle-cell disease with vaso-occlusive pain Current Visit: Yes Status: Acute Plan to address problem: Continue IV fluid hydration, adequate pain control and supportive care. C/p severe pain and wants one more day of IV fluids and IV pain meds.Retic count normal. (2) Anemia Current Visit: No Status: Acute Qualifiers: Anemia type: A Iron deficiency anemia type: I Vitamin B12 deficiency anemia type: V Folate deficiency anemia type: F Bone marrow failure anemia type: B Hemolytic anemia type: H Other causes of anemia: O Chronic kidney disease stage: C Plan to address problem: . Continue to monitor H&H closely. Transfuse as needed. (3) Asthma Current Visit: Yes Status: Acute Qualifiers: Asthma severity: A Asthma complication type: A Plan to address problem: Patient currently stable Discussed to follow up with her primary care (4) DVT prophylaxis Current Visit: Yes Status: Acute Plan to address problem: 5)Discharge [mallory issues Patient retic count normal.Pain meds seeking behavior???.For discharge tomorrow.Tried discharging today. 5)Pain management --Near adequate. Subjective Date of service: 10/14/16 Principal diagnosis: Sickle cell crisis Interval history: Still in pain Objective - Exam Narrative Exam: In Moderate pain - Constitutional Vitals: Vital Signs - 12hr 10/13/16 10/14/16 22:00 00:00 Temperature 99.3 F 99.2 F Pulse Rate [ 99 H 91 H Radial] Respiratory 20 18 Rate Blood Pressure 126/63 112/65 [Left Radial Artery] O2 Sat by Pulse 98 100 Oximetry General appearance: Present: no acute distress, well-nourished - EENT Eyes: PERRL, EOM intact ENT: hearing intact, clear oral mucosa Ears: bilateral: normal - Neck Neck: supple, normal ROM - Respiratory Respiratory effort: normal Respiratory: bilateral: CTA - Breasts Breasts: normal - Cardiovascular Heart rate: 70 Rhythm: regular Heart Sounds: Present: S1 & S2. Absent: gallop, rub Extremities: no ischemia, pulses intact, No edema, normal color, Full ROM - Gastrointestinal General gastrointestinal: Present: soft, non-tender, non-distended, normal bowel sounds Rectal Exam: deferred - Genitourinary Female genitourinary: normal - Integumentary Integumentary: clear, warm, dry - Musculoskeletal Musculoskeletal: 1, strength equal bilaterally - Neurologic Neurologic: moves all extremities - Psychiatric Psychiatric: memory intact, appropriate mood/affect, intact judgment & insight - Labs CBC & Chem 7: 10/13/16 23:04 10/13/16 23:04 Labs: Abnormal lab results 10/13/16 10/13/16 Range/Units 23:04 23:04 RBC 2.98 L (3.65-5.03) M/mm3 Hgb 8.6 L (10.1-14.3) gm/dl Hct 26.5 L (30.3-42.9) % RDW 22.3 H (13.2-15.2) % Plt Count 545 H (140-440) K/mm3 Lymph % (Auto) 36.7 H (13.4-35.0) % [place] % (Auto) 14.3 H (0.0-7.3) % [place] # 1.0 H (0.0-0.8) K/mm3 Sodium 133 L (137-145) mmol/L BUN 3 L (7-17) mg/dL Creatinine 0.6 L (0.7-1.2) mg/dL Short CBC 10/13/16 Range/Units 23:04 WBC 6.7 (4.5-11.0) K/mm3 Hgb 8.6 L (10.1-14.3) gm/dl Hct 26.5 L (30.3-42.9) % Plt Count 545 H (140-440) K/mm3 [facility] 10/13/16 23:04 Sodium 133 L Potassium 3.6 Chloride 98.6 Carbon Dioxide 23 BUN 3 L Creatinine 0.6 L Glucose 93 Calcium 9.0
[2016-10-14] MEDS: PEPCID IV SCH ×2 (11:03→21:26)
[2016-10-14] MEDS: LOVENOX SUB-Q SCH (11:03)
[2016-10-14] MEDS: D5NS 0.2% 1,000 ML IV SCH ×2 (12:41→19:58)
[2016-10-14] MEDS: ZOFRAN IV PRN (21:24)
[2016-10-14] MEDS ORDERED: AMBIEN PO PRN (23:25)
[2016-10-15 00:26] LABS: BUN/Creatinine Ratio 8.33; Blood Urea Nitrogen 5 mg/dL (7-17); Calcium 8.6 mg/dL (8.4-10.2); Carbon Dioxide 22 mmol/L (22-30); Chloride 100.6 mmol/L (98-107); Glucose 102 mg/dL (65-100); Potassium 4.1 mmol/L (3.6-5.0); Sodium 135 mmol/L (137-145)
[2016-10-15 00:27] LABS: Basophils % (Auto) 0.8 % (0.0-1.8); Eosinophils % (Auto) 1.6 % (0.0-4.3); Hematocrit 26.9 % (30.3-42.9); Hemoglobin 8.9 gm/dl (10.1-14.3); Mean Corpuscular HGB Conc 33 % (30-34); Mean Corpuscular Hemoglobin 30 pg (28-32); Mean Corpuscular Volume 91 fl (79-97); Platelet Count 634 K/mm3 (140-440); Red Blood Count 2.95 M/mm3 (3.65-5.03); Reticulocyte % 2.71 % (0.78-2.58)
[2016-10-15 00:29] LABS: Anion Gap 17 mmol/L
[2016-10-15] MEDS: D5NS 0.2% 1,000 ML IV SCH (03:40)
[2016-10-15] MEDS: DILAUDID IV PRN ×2 (05:39→12:42)
[2016-10-15] MEDS: BENADRYL IV PRN (05:40)
[2016-10-15] MEDS: ZOFRAN IV PRN (07:01)
--- NOTE | 2016-10-15 13:15 | Discharge Summary ---
Providers - Providers Date of Admission: 10/11/16 11:15 Date of discharge: 10/15/16 Attending physician: ALISON PERKINS 10/12/16 09:19 Consult to Physician [CONS] Routine Consulting Provider: NEELA GUZMÁN Reason For Exam: sickle cell disease Place consult to:: DR. GUZMÁN Notified:: DR. GUZMÁN Phone number called:: [phone] Was contact made?: Yes If yes, spoke with:: CARLEE Time called:: 09:36 Comment:: NEYMAR NOTIFIED Primary care physician: [employer] Hospitalization Condition: Good Hospital course: Discharge Diagnosis and Management: (1) Sickle-cell disease with vaso-occlusive pain Current Visit: Yes Status: Acute Plan to address problem: Continue IV fluid hydration, adequate pain control and supportive care. C/p severe pain and wants one more day of IV fluids and IV pain meds.Retic count normal. (2) Anemia Current Visit: No Status: Acute Qualifiers: Anemia type: A Iron deficiency anemia type: I Vitamin B12 deficiency anemia type: V Folate deficiency anemia type: F Bone marrow failure anemia type: B Hemolytic anemia type: H Other causes of anemia: O Chronic kidney disease stage: C Plan to address problem: . Continue to monitor H&H closely. Transfuse as needed. (3) Asthma Current Visit: Yes Status: Acute Qualifiers: Asthma severity: A Asthma complication type: A Plan to address problem: Patient currently stable Discussed to follow up with her primary care Disposition: DC-01 TO HOME OR SELFCARE Time spent for discharge: 32 minutes Core Measure Documentation - Palliative Care Palliative Care/ Comfort Measures: Not Applicable - Core Measures Any of the following diagnoses?: none Exam - Constitutional Vitals: Temp Pulse Resp BP Pulse Ox 98.8 F 86 16 115/60 98 10/15/16 08:10 10/15/16 08:10 10/15/16 08:10 10/15/16 08:10 10/15/16 08:10 General appearance: Present: no acute distress, well-nourished - EENT Eyes: Present: PERRL ENT: hearing intact, clear oral mucosa - Neck Neck: Present: supple, normal ROM - Respiratory Respiratory effort: normal Respiratory: bilateral: CTA - Cardiovascular Heart Sounds: Present: S1 & S2. Absent: rub, click - Extremities Extremities: pulses symmetrical, No edema Peripheral Pulses: within normal limits - Abdominal General gastrointestinal: Present: soft, non-tender, non-distended, normal bowel sounds - Integumentary Integumentary: Present: clear, warm, dry - Musculoskeletal Musculoskeletal: gait normal, strength equal bilaterally - Psychiatric Psychiatric: appropriate mood/affect, intact judgment & insight - Neurologic Neurologic: CNII-XII intact, moves all extremities Plan Activity: advance as tolerated Weight Bearing Status: Weight Bear as Tolerated Diet: regular Follow up with: PRIMARY CARE, [Primary Care Provider] - 3-5 Days Prescriptions: HYDROcodone/APAP 10-325 [[place] 10-325 mg TAB] 1 each PO Q4-6H #30 tablet
[2016-10-15 16:20] VITALS: BP 118/71
[2016-10-15] MEDS ORDERED: FLUSH HEPARIN IV SCH (17:29)
[2016-10-15] MEDS ORDERED: TRIPLE ANTIBIOTIC TP ONE (18:00)
--- NOTE | 2016-10-15 20:03 | Consultation ---
History of Present Illness - Reason for Consult Consult date: 10/15/16 - History of Present Illness Patient seen/examined, labs reviewed, case d/w her.D/c planning in progress. Past History Past Medical History: anemia, DVT, stroke, other (Asthma, has left-side thoracic port.) Past Surgical History: No surgical history Social history: no significant social history, Family history: no significant family history, diabetes (Sickle cell disease ), hypertension Medications and Allergies Allergies Allergy/AdvReac Type Severity Reaction Status Date / Time iodine Allergy Shortness Uncoded 05/24/16 06:34 of Breath Home Medications Medication Instructions Recorded Confirmed Last Taken Type Hydroxyurea [Hydrea] 500 mg PO BID 05/24/16 10/11/16 10/10/16 History Ondansetron [Zofran ODT TAB] 4 mg PO Q6H 05/24/16 10/11/16 10/10/16 History ALBUTEROL Inhaler [ProAir HFA 2 puff IH QID PRN 07/30/16 10/11/16 Unknown History Inhaler] Folic Acid [Folvite] 1 mg PO QDAY 07/30/16 10/11/16 10/10/16 History Multivitamin Tab [Multiple Vitamin 1 each PO QDAY #30 tablet 08/02/16 10/11/16 10/10/16 Rx TAB (Theragran)] Sennosides Tab [Senokot] 17.2 mg PO QHS PRN #60 tablet 08/02/16 10/11/16 Unknown Rx HYDROcodone/APAP 10-325 [[place] 1 each PO Q4-6H #30 tablet 10/15/16 Unknown Rx 10-325 mg TAB] Active Meds: Active Medications Acetaminophen (Tylenol) 650 mg PO Q4H PRN PRN Reason: Pain MILD(1-3)/Fever >100.5/CARDENAS Bisacodyl (Dulcolax) 10 mg [place] QDAY PRN PRN Reason: Constipation unrelieved by MOM Diphenhydramine HCl (Benadryl) 12.5 mg IV Q4HR PRN PRN Reason: Itching Last Admin: 10/15/16 05:40 Dose: 12.5 mg Enoxaparin Sodium (Lovenox) 40 mg SUB-Q QDAY BLAINE Last Admin: 10/14/16 11:03 Dose: 40 mg Famotidine (Pepcid) 20 mg IV BID [facility] Last Admin: 10/14/16 21:26 Dose: 20 mg Heparin Sodium (Porcine) (Flush Heparin) 500 unit IV ONCE BLAINE Stop: 10/15/16 23:00 Hydromorphone HCl (Dilaudid) 2 mg IV Q4HR PRN PRN Reason: Pain , Severe (7-10) Last Admin: 10/15/16 05:39 Dose: 2 mg Dextrose/Sodium Chloride (D5ns 0.2%) 1,000 mls @ 150 mls/hr IV DIRECT B[facility]INE Last Admin: 10/15/16 03:40 Dose: 150 mls/hr Magnesium Hydroxide (Milk Of Magnesia) 30 ml PO Q4H PRN PRN Reason: Constipation Ondansetron HCl (Zofran) 4 mg IV Q8H PRN PRN Reason: N/V unrelieved by Reglan Last Admin: 10/15/16 07:01 Dose: 4 mg Zolpidem Tartrate (Ambien) 5 mg PO QHS PRN PRN Reason: Sleep Last Admin: 10/14/16 23:45 Dose: 5 mg Review of Systems Constitutional: chronic pain Breasts: deferred Exam - Constitutional Vitals: Temp Pulse Resp BP Pulse Ox 99.3 F 92 H 16 118/71 98 10/15/16 16:19 10/15/16 16:19 10/15/16 16:19 10/15/16 16:19 10/15/16 08:10 General appearance: Present: mild distress, well-nourished - EENT Eyes: Present: PERRL ENT: hearing intact, clear oral mucosa - Neck Neck: Present: supple, normal ROM - Respiratory Respiratory effort: normal Respiratory: bilateral: CTA - Cardiovascular Heart Sounds: Present: S1 & S2. Absent: rub, click - Extremities Extremities: pulses symmetrical, No edema Peripheral Pulses: within normal limits - Abdominal General gastrointestinal: Present: soft, non-tender, non-distended, normal bowel sounds Female genitourinary: Present: deferred - Rectal Rectal Exam: deferred - Integumentary Integumentary: Present: clear, warm, dry - Musculoskeletal Musculoskeletal: gait normal, strength equal bilaterally - Psychiatric Psychiatric: appropriate mood/affect, intact judgment & insight - Neurologic Neurologic: CNII-XII intact, moves all extremities Results - Labs CBC & Chem 7: 10/14/16 23:48 10/14/16 23:48 Labs: Abnormal lab results 10/14/16 10/14/16 Range/Units 23:48 23:48 RBC 2.95 L (3.65-5.03) M/mm3 Hgb 8.9 L (10.1-14.3) gm/dl Hct 26.9 L (30.3-42.9) % RDW 22.0 H (13.2-15.2) % Plt Count 634 H (140-440) K/mm3 Lymph % (Auto) 36.1 H (13.4-35.0) % [place] % (Auto) 12.3 H (0.0-7.3) % Percent Retic 2.71 H (0.78-2.58) % Sodium 135 L (137-145) mmol/L BUN 5 L (7-17) mg/dL Creatinine 0.6 L (0.7-1.2) mg/dL Glucose 102 H (65-100) mg/dL Assessment and Plan - Patient Problems (1) Asthma Current Visit: Yes Status: Acute Qualifiers: Asthma severity: A Asthma complication type: A Plan to address problem: supportive (2) Sickle-cell disease with vaso-occlusive pain Current Visit: Yes Status: Acute (3) Sickle-cell with crisis Current Visit: Yes Status: Acute Plan to address problem: Pain control, hydration,labs. (4) Anemia Current Visit: No Status: Acute Qualifiers: Anemia type: A Iron deficiency anemia type: I Vitamin B12 deficiency anemia type: V Folate deficiency anemia type: F Bone marrow failure anemia type: B Hemolytic anemia type: H Other causes of anemia: O Chronic kidney disease stage: C Plan to address problem: transfusion when needed.
== END 2016-10-15 20:50 | disposition home or self-care (01) | DRG 812 ==
LOC: ED 19:32 → 3A 10-11 11:15
PROVIDERS: ADMIT Hospitalist; ATTEND Internal Medicine
DX: D57.00 Hb-SS disease with crisis, unspecified (principal); D64.9 Anemia, unspecified; J45.909 Unspecified asthma, uncomplicated; I10 Essential (primary) hypertension; Z60.2 Problems related to living alone; Z86.718 Personal history of other venous thrombosis and embolism; Z88.8 Allergy status to other drugs, medicaments and biological substances; Z83.3 Family history of diabetes mellitus; Z82.49 Family history of ischemic heart disease and other diseases of the circulatory system; Z86.73 Personal history of transient ischemic attack (TIA), and cerebral infarction without residual deficits
CPT/HCPCS: 36415; 71010; 74176; 80048; 80053; 81001; 81025; 82140; 82550; 83615; 84484; 84702; 85025; 85045; 85379; 85610; 87086; 93005; 93010; A6250; J1170; J1200; J1642; J1650; J2405; Q0177

== ENCOUNTER 2016-10-16 20:44 | Emergency (ER) | payer SELFPAY ==
[2016-10-16] MEDS ORDERED: D5NS 0.2% 1,000 ML IV SCH (22:00)
[2016-10-17 02:14] LABS: Basophils % (Auto) 0.9 % (0.0-1.8); Eosinophils % (Auto) 0.6 % (0.0-4.3); Hematocrit 28.8 % (30.3-42.9); Hemoglobin 9.2 gm/dl (10.1-14.3); Mean Corpuscular HGB Conc 32 % (30-34); Mean Corpuscular Hemoglobin 28 pg (28-32); Mean Corpuscular Volume 87 fl (79-97); Platelet Count 651 K/mm3 (140-440); Reticulocyte % 1.47 % (0.78-2.58); White Blood Count 6.6 K/mm3 (4.5-11.0)
[2016-10-17 02:15] LABS: Red Cell Distribution Width 22.3 % (13.2-15.2)
[2016-10-17] MEDS ORDERED: ZOFRAN IV ONE (06:15)
[2016-10-17] MEDS ORDERED: BENADRYL IV ONE (06:15)
[2016-10-17] MEDS ORDERED: DILAUDID IV ONE (06:15)
[2016-10-17 08:44] LABS: Anion Gap 18 mmol/L; BUN/Creatinine Ratio 13.33; Blood Urea Nitrogen 8 mg/dL (7-17); Calcium 8.9 mg/dL (8.4-10.2); Carbon Dioxide 22 mmol/L (22-30); Chloride 102.2 mmol/L (98-107); Creatine Kinase 97 units/L (30-135); Glucose 81 mg/dL (65-100); Potassium 4.1 mmol/L (3.6-5.0); Sodium 138 mmol/L (137-145)
[2016-10-17 09:16] LABS: Bilirubin,Urine NEG (Negative); Blood,Urine LG (Negative); Ketones,Urine 20 mg/dL (Negative); Leukocyte Esterase,Urine NEG (Negative); Mucus,Urine 3+ /HPF; Nitrite,Urine POS (Negative); Urobilinogen,Urine < 2.0 mg/dL (<2.0)
[2016-10-17 09:17] LABS: RBC,Urine > 182.0 /HPF (0.0-6.0); WBC,Urine > 182.0 /HPF (0.0-6.0)
[2016-10-17] MEDS ORDERED: SUBLIMAZE IV ONE ×2 (10:49→11:00)
[2016-10-17] MEDS ORDERED: ROCEPHIN/NS 1 GM/50 ML 1 GM/50 ML BAG IV ONE (12:41)
[2016-10-17] MEDS ORDERED: NACL 0.9% 1000 ML 1,000 ML IV ONE (12:41)
--- NOTE | 2016-10-17 12:45 | Emergency Department Report ---
HPI - General Chief Complaint: Sickle Cell Crisis Time Seen by Provider: 10/17/16 06:14 - HPI HPI: The patient is a 31-year-old female with a history of sickle cell disease, who presents for evaluation of abdominal pain. The patient reports superpubic abdominal pain for the past one week, 10/10 in severity, crampy in quality, associated with dysuria. She also complains of low back pain consistent with sickle cell pain attack, present for same duration, also 10/10 in severity, an aching in quality, exacerbated with movement of the lower back. The patient denies blunt trauma to the back, fall, fever, chills, night sweats, saddle anesthesia, paresthesias, numbness or tingling in the legs, leg weakness, urine or bowel incontinence or retention, difficulty ambulating, or other focal neurological deficits. The patient also denies redness or swelling to the back, IV drug use, history of cancer. ED Past Medical Hx - Past Medical History Hx Hypertension: Yes Hx Diabetes: No Hx Sickle Cell Disease: Yes Hx Asthma: Yes Additional medical history: Blood transfusion(multiply transfusions). Lupus - Surgical History Additional Surgical History: port to left chest wall - Social History Smoking Status: Never Smoker Substance Use Type: None - Medications Home Medications: Home Medications Medication Instructions Recorded Confirmed Last Taken Type Hydroxyurea [Hydrea] 500 mg PO BID 05/24/16 10/17/16 10/16/16 History Folic Acid [Folvite] 1 mg PO QDAY 07/30/16 10/17/16 10/16/16 History Multivitamin Tab [Multiple Vitamin 1 each PO QDAY #30 tablet 08/02/16 10/17/16 10/16/16 Rx TAB (Theragran)] HYDROcodone/APAP 10-325 [Simon 1 each PO Q4-6H #30 tablet 10/15/16 10/17/16 Rx 10-325 mg TAB] Nitrofurantoin [place]/M-Cryst 100 mg PO Q12HR #16 capsule 10/17/16 Unknown Rx [Macrobid CAP] ED Review of Systems ROS: Stated complaint: SICKLE CELL PAIN/BLOOD IN URINE Other details as noted in HPI Constitutional: denies: fever ENT: denies: throat or neck pain Respiratory: denies: cough, shortness of breath Cardiovascular: denies: chest pain Endocrine: denies unexplained weight loss or gain Gastrointestinal: reports abdominal pain, nausea Genitourinary: reports dysuria Musculoskeletal: denies: leg swelling Skin: denies: rash Neurological: denies: headache Hematological/Lymphatic: denies: easy bleeding or easy bruising Psych: denies sadness or hopelessness Physical Exam - Physical Exam Vital Signs: Vital Signs 10/16/16 10/17/16 10/17/16 20:48 00:59 01:19 Temperature 99.1 F 97.3 F L Pulse Rate 107 H 96 H 105 H Respiratory 18 18 13 Rate Blood Pressure 139/86 128/78 O2 Sat by Pulse 100 100 99 Oximetry 10/17/16 10/17/16 10/17/16 01:20 01:30 01:40 Temperature Pulse Rate 104 H 96 H 94 H Respiratory 14 10 L 10 L Rate Blood Pressure 125/87 119/87 119/87 O2 Sat by Pulse 100 100 100 Oximetry 10/17/16 10/17/16 10/17/16 01:50 02:13 02:49 Temperature Pulse Rate 97 H Respiratory 14 18 Rate Blood Pressure 110/71 119/87 O2 Sat by Pulse 100 100 100 Oximetry 10/17/16 10/17/16 10/17/16 02:50 03:00 11:14 Temperature Pulse Rate 93 H 95 H Respiratory 11 L 17 18 Rate Blood Pressure 119/87 97/50 O2 Sat by Pulse 100 99 Oximetry Physical Exam: General: well-nourished, well-developed, no acute distress Head: Normocephalic, atraumatic Eyes: normal sclera ENT: Mucous membranes are pale and dry Neck: No neck stiffness, no cervical adenopathy Respiratory: Breath sounds equal bilaterally, no wheezing, rales, or rhonchi Cardio: S1 and S2 present, no murmurs, rubs, gallops, capillary refill is delayed Abdomen: Normoactive bowel sounds, soft abdomen, no tenderness to palpation present, no rigidity, no guarding or rebound tenderness Chest WALL/Back: No tenderness to palpation of the chest wall, no CVA tenderness with percussion Musc: Tenderness to palpation present to bilateral lower lumbar paraspinal musculature, pain is elicited with flexion at the hip, normal active range of motion at the hip intact, no spinous step-off or obvious deformity, ipsi- lateral and contralateral straight leg raise tests are negative. On extremity testing, compartments are soft and pliable, no obvious gross motor strength deficit, 5+ motor strength, including extension of the great toe bilaterally, no muscular atrophy, spasticity, fasciculations, or clonus, no obvious gross sensation deficit including web space between 1st and 2nd toes, reflexes 2+ & symmetric on DTR testing at the knee and ankle joints, distal pulses intact. Skin: No rash Neuro: no facial drooping, normal speech Psych: Normal affect ED Course Vital Signs 10/16/16 10/17/16 10/17/16 20:48 00:59 01:19 Temperature 99.1 F 97.3 F L Pulse Rate 107 H 96 H 105 H Respiratory 18 18 13 Rate Blood Pressure 139/86 128/78 O2 Sat by Pulse 100 100 99 Oximetry 10/17/16 10/17/16 10/17/16 01:20 01:30 01:40 Temperature Pulse Rate 104 H 96 H 94 H Respiratory 14 10 L 10 L Rate Blood Pressure 125/87 119/87 119/87 O2 Sat by Pulse 100 100 100 Oximetry 10/17/16 10/17/16 10/17/16 01:50 02:13 02:49 Temperature Pulse Rate 97 H Respiratory 14 18 Rate Blood Pressure 110/71 119/87 O2 Sat by Pulse 100 100 100 Oximetry 10/17/16 10/17/16 10/17/16 02:50 03:00 11:14 Temperature Pulse Rate 93 H 95 H Respiratory 11 L 17 18 Rate Blood Pressure 119/87 97/50 O2 Sat by Pulse 100 99 Oximetry ED Medical Decision Making - Lab Data Result diagrams: 10/17/16 01:56 10/17/16 08:05 - Medical Decision Making The patient was seen and examined by myself. The patient is placed on a hand model and continuous pulse ox. On initial evaluation, the patient was found to be in no distress. Evaluation orders are placed. IV access is established and the patient is given 1 L normal saline fluid bolus for treatment of dehydration, and Zofran for nausea, and IV dilaudid for pain. 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 The patient is given IV Rocephin for treatment of urinary tract infection. The on-call hospitalist Dr. Gotti is contacted. He agrees to assume care and management of the patient. Critical care attestation.: If time is entered above; I have spent that time in minutes in the direct care of this critically ill patient, excluding procedure time. ED Disposition Clinical Impression: Sickle-cell disease with vaso-occlusive pain, Anemia, Dehydration, Hematuria due to cystitis, Acute UTI (urinary tract infection) Disposition: OP ADMIT IP TO THIS HOSP Is pt being admited?: Yes Does the pt Need Aspirin: Yes Condition: Stable Prescriptions: Nitrofurantoin [place]/M-Cryst [Macrobid CAP] 100 mg PO Q12HR #16 capsule Referrals: NEELA GUZMÁN DO [Primary Care Provider] - 3-5 Days Time of Disposition: 10:43
--- NOTE | 2016-10-17 13:40 | Admit Criteria Form ---
Admission Criteria Documentation: SICKLE CELL DISEASE Clinical Indications for Admission to Inpatient Care (Place 'X' for any and all applicable criteria): Admission is indicated for ANY ONE of the following(1)(2)(3)(4)(5): [ X]I. Inpatient admission required rather than observation care because of ANY ONE of the following: [ ]a) Altered mental status [ ]b) High fever or infection requiring inpatient admission as indicated by ANY ONE of the following: [ ]A. Appropriate outpatient observation care antimicrobial treatment unavailable, not effective, or not appropriate for infection [ ]B. Documented bacteremia [ ]C. Temp >104.9F (40.5C) (oral) [ ]D. Temp >103.1F (oral) or <96.8F(rectal) that does not respond to all emergency treatment measures [ ]c) Supplemental O2 or respiratory therapy for over 24 h that are performable only in acute inpatient setting [ ]d) Continuous parenteral narcoticsother major pain intervention for >24 h performable only in acute inpatient setting. [ ]e) Exchange transfusion [X ]f) Other condition, treatment or monitoring requiring inpatient admission [ ]II. Acute chest syndrome indicated by ALL of the following (10): [ ]a) New alveolar infiltrate involving at least one lung segment [ ]b) Associated pulmonary symptoms or findings as indicated by ANY ONE of the following: [ ]i) Chest pain [ ]ii) Hypoxemia [ ]iii) Tachypnea/dyspnea [ ]iv) Wheezing [ ]v) Cough [ ]vi) Sputum production [ ]III. Significant hypoxemia or acidosis (more severe than baseline) [ ]IV. Emergent surgery needed (eg, acute cholecystitis) [ ]V. -related complication(11) [ ]. Splenic or hepatic sequestration(12) [ ]VII. Aplastic crisis [ ]VIII. Priapism or other vascular complication(13) [ ]IX. Traumatic hyphema [A](14) [ ]X. Underlying condition requiring hospitalization (eg, osteomyelitis) [ ]XI. Signs or symptoms of central nervous system injury indicated by ANY ONE of the following: [ ]a) Stroke(9) [ ]b) Seizure [ ]c) Other significant central nervous system symptom or event [ ]XII. Acute renal failure Extended stay beyond goal length of stay may be needed for: [ ]a) Inadequate pain control [ ]b) Acute chest syndrome [ ]c) Sequestration or aplastic crisis (12) [ ]d) Pneumonia and asthma exacerbation [ ]e) Neurologic or vascular complications (25) [ ]f) Infection (eg, osteomyelitis) that requires ongoing treatment) The original [facility] [email or web address] content created by [employer] has been revised. The portions of the content which have been revised are identified through the use of italic text or in bold, and [facility] has neither reviewed nor approved the modified material. All other unmodified content is copyright [facility] [facility]. Please see references footnoted in the original [facility] [employer] edition 2016
--- NOTE | 2016-10-17 14:19 | Event Note ---
Date: 10/17/16 Patient comes in for presumed pain all over $Recently dischatged 2 days ago Retic count -1.47 Cystitis UTI Discharge home on macrobisd 100 mg po bid
[2016-10-17 15:22] VITALS: BP 116/70
[2016-10-17] MEDS ORDERED: FLUSH HEPARIN IV ONE (16:25)
== END 2016-10-17 18:30 | disposition admitted as inpatient to this hospital (09) ==
LOC: ED 20:44
DX: D57.1 Sickle-cell disease without crisis (principal); E86.0 Dehydration; N30.91 Cystitis, unspecified with hematuria; N39.0 Urinary tract infection, site not specified; J45.909 Unspecified asthma, uncomplicated
CPT/HCPCS: 36415; 80048; 81001; 81025; 82550; 85025; 85045; 96361; 96365; 96375; 99285; J0696; J1170; J1200; J1642; J2405; J3010; J7030